=== PATIENT | female | born 1955 | race Caucasian/White ===

== ENCOUNTER 2017-02-15 11:06 | Inpatient (IN) | payer OTHER ==
[~2017-02-15] VITALS: Ht 162.6 cm; Wt 97.0 kg
[~2017-02-15 11:06] MED LIST: ACET500C5 PO; BACTDS PO; CEPH-443 PO
[2017-02-15] MEDS ORDERED: ASPIRIN 81 MG TAB PO STA (11:31)
[2017-02-15] MEDS ORDERED: ONDANSETRON 4 MG INJ IV STA (11:31)
[2017-02-15] MEDS ORDERED: NITROGLYCERIN 2% 1 GM OINT PKT TD STA (11:31)
[2017-02-15] MEDS ORDERED: morphine 4 MG/ML VIAL IV STA (11:31)
[2017-02-15 11:59] LABS: BASOPHILS % 0.4 % (0.0-2.0); EOSINOPHILS # 0.2 10^3/ul (0.0-0.5); LYMPHOCYTES # 2.3 10^3/ul (0.8-2.9); LYMPHOCYTES % 31.8 % (15.0-51.0); MEAN CORPUSCULAR HEMOGLOBIN 30.4 pg (29.0-33.0); MEAN CORPUSCULAR HGB CONC 32.5 g/dl (32.0-37.0); MEAN CORPUSCULAR VOLUME 93.7 fl (82.0-101.0); MEAN PLATELET VOLUME 10.6 fl (7.4-10.4); MONOCYTE # 0.5 10^3/ul (0.3-0.9); MONOCYTES % 6.5 % (0.0-11.0); NEUTROPHIL # 4.3 10^3/ul (1.6-7.5); NEUTROPHILS % 58.8 % (39.0-77.0); PLATELET COUNT 231 10^3/UL (140-415); RED BLOOD COUNT 4.27 10^6/ul (4.20-5.40); RED CELL DISTRIBUTION WIDTH 13.1 % (11.5-14.5); WHITE BLOOD COUNT 7.3 10^3/ul (4.8-10.8)
[2017-02-15] MEDS ORDERED: NITROGLYCERIN (SL) 0.4 MG TAB SL PRN (12:00)
--- NOTE | 2017-02-15 12:00 | RADRPT ---
PROCEDURE: Chest x-ray CLINICAL INDICATION: Chest pain TECHNIQUE: Chest single view COMPARISON: None FINDINGS: There is left chest dual lead pacemaker. Mild cardiomegaly and an sclerotic aortic calcification is seen.. The pulmonary vessels are normal in caliber. The lungs are clear. The costophrenic angles are sharp. The visualized bony thorax is unremarkable. IMPRESSION: No acute cardiopulmonary disease. Mild cardiomegaly and an sclerotic aortic calcification Pacemaker RPTAT: HH .Henry Power MD, Date Time Electronically viewed and signed by .Henry Power MD, on 02/15/2017 12:00 .W/
[2017-02-15 12:13] LABS: ANION GAP 11 (8-16); BLOOD UREA NITROGEN 12 mg/dl (7-20); CALCIUM 9.8 mg/dl (8.4-10.2); CARBON DIOXIDE 28 mmol/L (21-31); CHLORIDE 106 mmol/L (97-110); GLUCOSE 140 mg/dl (70-220); POTASSIUM 4.3 mmol/L (3.5-5.1); SODIUM 141 mmol/L (135-144)
[2017-02-15 12:28] LABS: TROPONIN-I < 0.012 ng/ml (0.00-0.12)
[2017-02-15] MEDS ORDERED: LANT3I SC (12:39)
[2017-02-15] MEDS ORDERED: LEVO125T75 PO (12:40)
[2017-02-15] MEDS ORDERED: GABA300C16 PO (12:41)
[2017-02-15] MEDS ORDERED: OMEP20CA16 PO (12:41)
[2017-02-15] MEDS ORDERED: SIMV20TA PO (12:41)
[2017-02-15] MEDS ORDERED: ASPI-664 PO (12:42)
[2017-02-15] MEDS ORDERED: BENA20TA48 PO (12:42)
[2017-02-15] MEDS ORDERED: METF500T4 PO (12:43)
[2017-02-15] MEDS ORDERED: MTF1000T PO (12:44)
[2017-02-15] MEDS ORDERED: INSU100C SQ (12:45)
[2017-02-15] MEDS ORDERED: ACETAMINOPHEN 325 MG TAB PO PRN (13:00)
[2017-02-15] MEDS ORDERED: ONDANSETRON 4 MG INJ IV PRN ×2 (13:00→14:30)
--- NOTE | 2017-02-15 13:20 | ERD ---
ER Documentation Chief Complaint Chief Complaint Pt with intermittent CP , L axillary lump X 1 week. HPI Patient is a 61-year-old female with hypertension and high cholesterol who presents with chest pain. The patient has midsternal chest pain which started 1 month ago. It radiates to her left arm. She has no fevers. The pain is been constant but worsening over the past day. She has shortness of breath as well. She has had no treatment as of yet. Upon review of old medical records this is the patient's third visit to the ER since 2016. ROS All systems reviewed and are negative except as per history of present illness. Medications Home Meds Reported Medications Insulin Lispro (Humalog) 100 Unit/1 Ml Cartridge, 6 UNIT SQ BID WITH MEALS 02/15/17 Metformin* (Glucophage*) 1,000 Mg Tablet, 1000 MG PO BID, #60 TAB 02/15/17 Aspirin* (Aspirin* EC) 81 Mg Tablet.dr, 81 MG PO DAILY, TAB 02/15/17 Benazepril Hcl* (Benazepril Hcl*) 20 Mg Tablet, 20 MG PO DAILY, #30 TAB 02/15/17 Omeprazole* (Omeprazole*) 20 Mg Capsule.dr, 20 MG PO AC BREAKFAST, #30 CAP 02/15/17 Gabapentin* (Gabapentin*) 300 Mg Capsule, 300 MG PO TID, #90 CAP 02/15/17 Simvastatin* (Zocor*) 20 Mg Tablet, 20 MG PO QHS, #30 TAB 02/15/17 Levothyroxine Sodium* (Levothyroxine Sodium*) 125 Mcg Tablet, 125 MCG PO BEFORE BREAKFAST, #30 TAB 02/15/17 Insulin Glargine* (Lantus*) 100 Unit/Ml Soln, 36 UNIT SC QHS, #1 VIAL 02/15/17 Discontinued Reported Medications Metformin* (Glucophage*) 500 Mg Tab, 500 MG PO BID, #30 TAB 02/15/17 Discontinued Scripts Acetaminophen* (Tylophen*) 500 Mg Capsule, 1 CAP PO Q6H Y for PAIN AND OR ELEVATED TEMP, #50 CAP Prov:STORMY MORENO PA-C 12/29/15 Sulfamethoxazole-Trimethoprim* (Bactrim* DS) 800-160 Mg Tab, 1 TAB PO BID for 7 Days, TAB Prov:STORMY MORENO PA-C 12/29/15 Cephalexin* (Keflex*) 500 Mg Capsule, 500 MG PO QID for 7 Days, CAP Prov:STORMY MORENO PA-C 12/29/15 Allergies Allergies: Coded Allergies: No Known Allergy (Unverified , 01/01/16) PMhx/Soc History of Surgery: Yes (Gallstones) Anesthesia Reaction: No Hx Neurological Disorder: No Hx Respiratory Disorders: No Hx Cardiac Disorders: Yes (HTN) Hx Psychiatric Problems: No Hx Miscellaneous Medical Probl: Yes (DM) Hx Alcohol Use: No Hx Substance Use: No Hx Tobacco Use: No Smoking Status: Never smoker FmHx Family History: coronary disease Physical Exam Vitals Vital Signs Date Time Temp Pulse Resp B/P Pulse Ox O2 Delivery O2 Flow Rate FiO2 02/15/17 11:45 Nasal Cannula 2 02/15/17 11:12 98.0 72 18 204/87 96 Physical Exam Const: Mild distress secondary to chest pain Head: Atraumatic Eyes: Normal Conjunctiva ENT: Normal External Ears, Nose and Mouth. Neck: Full range of motion..~ No meningismus. Resp: Clear to auscultation bilaterally Cardio: Regular rate and rhythm, no murmurs Abd: Soft, non tender, non distended. Normal bowel sounds Skin: No petechiae or rashes Back: No midline or flank tenderness Ext: No cyanosis, or edema Neur: Awake and alert Psych: Normal Mood and Affect Result Diagram: 02/15/17 1145 02/15/17 1145 Results 24 hrs Laboratory Tests Test 02/15/17 11:45 White Blood Count 7.310^3/ul Red Blood Count 4.2710^6/ul Hemoglobin 13.0g/dl Hematocrit 40.0% Mean Corpuscular Volume 93.7fl Mean Corpuscular Hemoglobin 30.4pg Mean Corpuscular Hemoglobin Concent 32.5g/dl Red Cell Distribution Width 13.1% Platelet Count 47636^3/UL Mean Platelet Volume 10.6fl Neutrophils % 58.8% Lymphocytes % 31.8% Monocytes % 6.5% Eosinophils % 2.0% Basophils % 0.4% Nucleated Red Blood Cells % 0.0/100WBC Neutrophils # 4.310^3/ul Lymphocytes # 2.310^3/ul Monocytes # 0.510^3/ul Eosinophils # 0.210^3/ul Basophils # 0.010^3/ul Nucleated Red Blood Cells # 0.010^3/ul Sodium Level 141mmol/L Potassium Level 4.3mmol/L Chloride Level 106mmol/L Carbon Dioxide Level 28mmol/L Anion Gap 11 Blood Urea Nitrogen 12mg/dl Creatinine 0.80mg/dl Glucose Level 140mg/dl Calcium Level 9.8mg/dl Troponin I < 0.012ng/ml Current Medications Medications (Trade) Dose Ordered Sig/Nacho Route PRN Reason Start Time Stop Time Status Last Admin Dose Admin Aspirin (Aspirin) 162 mg ONCE STAT PO 02/15/17 11:31 02/15/17 11:32 DC 02/15/17 11:41 Nitroglycerin (Nitroglycerin 2% Oint) 1 inch ONCE STAT TD 02/15/17 11:31 02/15/17 11:32 DC 02/15/17 11:41 Nitroglycerin (Nitroglycerin (Sl Tab) 0.4 Mg) 1 tab Q5M UP TO 3 DOSES PRN SL CHEST PAIN 02/15/17 12:00 Morphine Sulfate (morphine) 4 mg ONCE STAT IV 02/15/17 11:31 02/15/17 11:32 DC 02/15/17 11:41 Ondansetron HCl (Zofran Inj) 4 mg ONCE STAT IV 02/15/17 11:31 02/15/17 11:32 DC 02/15/17 11:41 Ondansetron HCl (Zofran Inj) 4 mg ER BRIDGE PRN IV NAUSEA AND/OR VOMITING 02/15/17 13:00 02/16/17 12:59 Acetaminophen (Tylenol Tab) 650 mg ER BRIDGE PRN PO MILD PAIN/FEVER 02/15/17 13:00 02/16/17 12:59 Procedures/MDM EKG read by me: Rate/Rhythm: Paced rhythm at a normal rate Intervals: Normal Impression: Paced rhythm with negative Sgarbossa criteria EKG #2 is pending at this time. Chest x-ray shows no pneumonia or pneumothorax per radiology. Patient is a 61-year-old female with multiple cardiac risk factors who presents with chest pain and shortness of breath. She will need admission for a telemetry observation stay to rule out acute coronary syndrome. She was given aspirin, nitroglycerin, and morphine. I spoke with Dr. Taras from the panel team for admission to a telemetry bed. Initial troponin is negative. EKG shows a paced rhythm with negative Sgarbossa criteria. I doubt pneumonia, pneumothorax , pulmonary embolism, or aortic dissection. Departure Diagnosis: Primary Impression: Chest pain Chest pain type: unspecified Qualified Code: R07.9 - Chest pain, unspecified type Condition: DAYNA Rocha MD Feb 15, 2017 13:19
[2017-02-15] MEDS ORDERED: NACL 0.9% 3 ML SYG IV SCH (14:30)
--- NOTE | 2017-02-15 14:40 | HP ---
Date/Time of Note Date/Time of Note DATE: 02/15/17 TIME: 14:39 Assessment/Plan VTE Prophylaxis VTE Prophylaxis Intervention: LMWH Lines/Catheters IV [facility] [place] Assessment/Plan Chief Complaint/Hosp Course 1. Chest pain. -Will rule out ACS. -Serial troponins. 2D echocardiogram. -Cardiology consult. 2. Left mastitis. -Bilateral breast ultrasound. -Antibiotics. 3. Left axillary mass. -Obtain soft tissue ultrasound. 4. Status post permanent pacemaker. -Cardiology evaluation. 5. Essential hypertension. -Resume home antihypertensives. 6. Type 2 diabetes mellitus. -Obtain hemoglobin A1c. -Start sliding scale insulin along with basal insulin and pre-meal insulin. -Resume metformin. 7. Dyslipidemia. -Resume statins. 8. Hypothyroidism. -Resume Synthroid. Plan: The patient will be admitted to inpatient telemetry floor. The patient will be started on a carbohydrate controlled, low-cholesterol diet. The patient will be started on DVT prophylaxis and gastrointestinal prophylaxis. The patient will remain a full code. Activities will be as tolerated. The rest of the patient's management will be based on the clinical course, inputs from consultants, and the results of diagnostic studies. Based on the patient's clinical presentation, she most probably requires at least 2 midnights' stay for further management and evaluation of her clinical presentation. The case and management of this patient was fully discussed with . Problems: HPI/ROS Admit Date/Time Admit Date/Time Hx of Present Illness Reason for admission: Chest pain, left breast pain, bump in the left axilla. Consultants 1. Adolfo Hairston MD, Cardiology. This is a 61-year-old female with past medical history essential hypertension, type 2 diabetes mellitus, hypothyroidism, permanent pacemaker placement, and dyslipidemia who came to the emergency room with chief complaint of chest pain that has been going on and off for the past 2 weeks or so. The patient verbalized the chest pain as pins and needles sensation with radiation to the left, that is not associated with any exertion. The patient also verbalized exertional dyspnea. Patient also verbalized pain in the right thigh region that has been going on for the past 4 days. The patient wass also complaining of her left breast heaviness as well as hardness along with a left armpit "bump." The patient denied any fevers, chills, nausea, vomiting, or diaphoresis. She denied any any recent long drives or flights. In the emergency room, the patient's blood work was within normal limits. The patient's chest x-ray showed mild cardiomegaly with no acute cardiopulmonary disease. The patient was treated with aspirin and transdermal nitroglycerin along with IV analgesics in the emergency room. ROS Constitutional: no complaints Eyes: no complaints ENT: no complaints Respiratory: shortness of breath Cardiovascular: chest pain Gastrointestinal: no complaints Genitourinary: no complaints Musculoskeletal: no complaints Skin: no complaints Neurologic: no complaints Endocrine: no complaints Lymphatic: adenopathy (Left axilla.) Psychological: no complaints Immunologic: no complaints PMH/Family/Social Past Medical History Medical History: diabetes, high cholesterol, hypertension, hypothyroid Past Surgical History Past Surgical Hx: cholecystectomy, other (Permanent pacemaker) Social History The patient lives at home. Alcohol Use: none Smoking Status: Former smoker Drug Use: none Exam/Review of Systems Vital Signs Vitals Vital Signs Date Time Temp Pulse Resp B/P Pulse Ox O2 Delivery O2 Flow Rate FiO2 02/15/17 13:30 98.6 60 16 141/67 100 Nasal Cannula 2.0 Exam Exam General: Adequately build 61 year-old female lying in bed in no apparent distress. HEENT: Normocephalic, atraumatic. Eyes: Anicteric sclerae, conjunctivae clear. ENT: Nasal septum midline, oral mucosa moist. Neck supple, no JVD noticed. Respiratory: Bilaterally clear breath sounds. No use of accessory muscles of respiration. No adventitious breath sounds. Cardiovascular: S1, S2 heard. Regular rate and rhythm. Breasts: Left breast erythema and tenderness. No nipple inversion. Left axillary palpable mass (immobile) Abdomen: Soft, nontender, and nondistended. Bowel sounds positive in all 4 quadrants. Genitourinary: Deferred. Extremities: No cyanosis, no clubbing, no edema. Peripheral pulses palpable. Neurologic: Cranial nerves II through XII grossly intact. The patient is awake, alert, and oriented. Skin: Normal skin turgor. No skin rashes. Labs Result Diagram: 02/15/17 1145 02/15/17 1145 Medications Medications Current Medications Ondansetron HCl (Zofran Inj) 4 mg Q6H PRN IV NAUSEA AND/OR VOMITING; Start 02/15/17 at 14:30 Aspirin (Aspirin) 81 mg DAILY PO ; Start 02/16/17 at 09:00 Acetaminophen (Tylenol Tab) 650 mg Q6H PRN PO PAIN LEVEL 1-3 OR FEVER; Start 02/15/17 at 14:30 Acetaminophen/ Hydrocodone Bitart ([place] (5/325)) 1 tab Q6H PRN PO PAIN LEVEL 4 -6; Start 02/15/17 at 14:30 Enoxaparin Sodium (Lovenox) 40 mg DAILY SC ; Start 02/16/17 at 09:00 Benazepril HCl (Lotensin) 20 mg DAILY PO ; Start 02/16/17 at 09:00 Gabapentin (Neurontin) 300 mg TID PO ; Start 02/15/17 at 21:00 Insulin Glargine (Lantus) 36 unit QHS SC ; Start 02/15/17 at 21:00 Atorvastatin Calcium (Lipitor) 10 mg DAILY@21 PO ; Start 02/15/17 at 21:00 Cephalexin (Keflex) 500 mg Q8 PO ; Start 02/15/17 at 22:00; Status UNMELLISSA BARAJAS NP Feb 15, 2017 14:40
[2017-02-15 15:08] LABS: THYROID STIMULATING HORMONE 3.6 MIU/L (0.465-4.680)
--- NOTE | 2017-02-15 15:34 | RADRPT ---
PROCEDURE: US left axilla CLINICAL INDICATION: Left axilla mass and pain TECHNIQUE: Multiple real-time images were acquired of the left axilla COMPARISON: None available except for chest radiograph 02/15/2017 FINDINGS: 4.3 x 2.7 x 4.4 cm heterogeneous abnormality left axillary abnormality corresponding to the patient' s complaint, but it is not certain if this is complex cystic or heterogeneous solid (suggested by co lisa-flow signal scattered throughout this abnormality). Adjacent 1.3 cm in diameter nodule/lymph node. IMPRESSION: 1. Large left axillary heterogeneous abnormality is indeterminate; this probably is heterogeneous s olid (enlarged lymph node or mass is in the differential diagnosis), but complex cyst is also in the differential diagnosis. 2. Adjacent small nodule/lymph node is indeterminate. Clinical management recommended. A CT scan of this area (the patient has a pacemaker) may be conside red for further analysis. RPTAT: TT Physician Jak Date Time Electronically viewed and signed by Estelle Rubalcava Physician on 02/15/2017 15:34 IRIS/
--- NOTE | 2017-02-15 16:02 | RADRPT ---
Echocardiogram Report Patient Name: MARU LITTLE Gender: Female Date: 1955 Study Date: 15-Feb-2017 Cable Repairer: Meenakshi Tilley RDCS Location: [facility] Ref. Physician: MELLISSA FRANCIS Quality: Adequate Procedures: Transthoracic echocardiogram with complete 2D, M-Mode, and doppler examination. Indications: Chest Pain. 2D/M Mode Doppler Measurement Value Normal Ranges Measurement Value Normal Ranges LVIDd 2D 4.8 3.5 - 5.6 cm AV Peak Ramon 1.3 m/sec LVIDs 2D 2.9 2.1 - 4.1 cm AV Peak PG 7.0 mmHg LVPWd 2D 1.0 0.6 - 1.1 cm LVOT Peak Ramon 0.9 m/sec IVSd 2D 1.2 0.6 - 1.1 cm LVOT Peak PG 3.0 mmHg AoR Diam 2D 2.5 2.0 - 3.7 cm MV E Peak Ramon 0.6 m/sec EDV 2D 108.6 cm3 MV A Peak Ramon 0.9 m/sec ESV 2D 25.3 cm3 MV E/A 0.7 LA Dimen 2D 3.7 2.3 - 4.0 cm MV Decel Time 265 msec MV Decel Rogers 2 MV E/A 0.7 TR Peak Ramon 2.2 m/sec TR Peak PG 19.0 mmHg RVSP 22.0 mmHg Findings Left Ventricle: Lower limits of normal systolic function. Normal left ventricular cavity size. Normal left ventricular wall thickness. Ejection fraction is visually estimated at 50 %. Tissue Doppler/Mitral Doppler indices are consistent with impaired relaxation (Stage I diastolic dysfunction). These segments of the LV are hypokinetic apical septum. Right Ventricle: Normal right ventricular size. Normal right ventricular systolic function. Left Atrium: The left atrium is normal in size. Right Atrium: The right atrium is normal in size. Mitral Valve: Normal appearance and function of the mitral valve with trace physiologic regurgitation. Aortic Valve: No significant aortic stenosis or insufficiency. Aortic cusps appear mildly calcified. Tricuspid Valve: Normal appearance of the tricuspid valve. Estimated peak PA systolic pressure 22 mmHg. There is trace tricuspid regurgitation. Pulmonic Valve: Normal pulmonic valve appearance. Pericardium: Normal pericardium with no significant pericardial effusion. Aorta: Normal aortic root. IVC: Normal size and normal respiratory collapse consistent with normal right atrial pressure. Conclusions 1.Lower limits of normal systolic function. Normal left ventricular cavity size. Normal left ventricular wall thickness. Ejection fraction is visually estimated at 50 %. Tissue Doppler/Mitral Doppler indices are consistent with impaired relaxation (Stage I diastolic dysfunction). These segments of the LV are hypokinetic apical septum. 2.Normal appearance and function of the mitral valve with trace physiologic regurgitation. 3.Normal appearance of the tricuspid valve. Estimated peak PA systolic pressure 22 mmHg. There is trace tricuspid regurgitation. Electronically Signed By: Adolfo Hairston 15-Feb-2017 16:01:37 -0800 Patient Name: MARU LITTLE Study Date: 15-Feb-[id number]
[2017-02-15] MEDS: INSULIN ASPART [NOVOLOG] 3 ML PEN SC SCH ×3 (17:18→22:05)
[2017-02-15] MEDS: metFORMIN 500 MG TAB PO SCH (17:53)
[2017-02-15 18:39] LABS: CREATINE KINASE 85 IU/L (23-200)
[2017-02-15 18:54] LABS: TROPONIN-I < 0.012 ng/ml (0.00-0.12)
[2017-02-15 19:00] VITALS: TEMP 97.3
[2017-02-15 20:00] VITALS: Ht 162.6 cm; Wt 97.0 kg
[2017-02-15 20:05] VITALS: PULSE 65
[2017-02-15 20:19] VITALS: BP 161/77; RESP 20
[2017-02-15] MEDS: INSULIN GLARGINE [LANtus] 3 ML PEN SC SCH (21:00)
[2017-02-15] MEDS ORDERED: INSULIN GLARGINE [LANtus] 3 ML PEN SC ONE (22:30)
[2017-02-15] MEDS: ATORVASTATIN 10 MG TAB PO SCH (22:34)
[2017-02-15] MEDS: CEPHALEXIN 500 MG CAP PO SCH (22:34)
[2017-02-15] MEDS: HYDROCODONE/APAP (5/325) TAB PO PRN (22:34)
[2017-02-15] MEDS: GABAPENTIN 300 MG CAP PO SCH (22:35)
[2017-02-15] MEDS: ACCU-CHEK XX SCH (23:32)
[2017-02-16] VITALS (10 sets, daily range): BP systolic 110–163; BP diastolic 54–74; PULSE 6–72; RESP 16–20
[2017-02-16 00:07] LABS: CREATINE KINASE 90 IU/L (23-200)
[2017-02-16 00:19] LABS: CK-MB 0.94 ng/ml (0.0-2.4)
[2017-02-16 00:27] LABS: TROPONIN-I < 0.012 ng/ml (0.00-0.12)
[2017-02-16] MEDS ORDERED: INSULIN ASPART [NOVOLOG] 3 ML PEN SC SCH (05:00)
[2017-02-16] MEDS: Insulin NOVOLOG SS MILD Algorithm (NPO/TPN/ENTERAL FEEDS) SC SCH ×4 (05:00→19:06)
[2017-02-16] MEDS: CEPHALEXIN 500 MG CAP PO SCH ×2 (05:50→15:07)
[2017-02-16] MEDS: LEVOTHYROXINE 125 MCG TAB PO SCH (05:50)
[2017-02-16] MEDS: INSULIN ASPART [NOVOLOG] 3 ML PEN SC SCH ×4 (07:55→21:00)
[2017-02-16] MEDS: metFORMIN 500 MG TAB PO SCH ×2 (07:55→17:53)
[2017-02-16 08:24] LABS: BASOPHILS % 0.5 % (0.0-2.0); EOSINOPHILS # 0.2 10^3/ul (0.0-0.5); EOSINOPHILS % 3.9 % (0.0-7.0); HEMOGLOBIN 12.7 g/dl (12.0-16.0); LYMPHOCYTES # 1.9 10^3/ul (0.8-2.9); LYMPHOCYTES % 31.6 % (15.0-51.0); MEAN CORPUSCULAR HEMOGLOBIN 29.6 pg (29.0-33.0); MEAN CORPUSCULAR HGB CONC 31.8 g/dl (32.0-37.0); MEAN CORPUSCULAR VOLUME 93.2 fl (82.0-101.0); MEAN PLATELET VOLUME 10.9 fl (7.4-10.4); MONOCYTE # 0.4 10^3/ul (0.3-0.9); MONOCYTES % 6.9 % (0.0-11.0); NEUTROPHIL # 3.4 10^3/ul (1.6-7.5); NEUTROPHILS % 56.8 % (39.0-77.0); PLATELET COUNT 227 10^3/UL (140-415); RED BLOOD COUNT 4.29 10^6/ul (4.20-5.40); RED CELL DISTRIBUTION WIDTH 13.2 % (11.5-14.5); WHITE BLOOD COUNT 5.9 10^3/ul (4.8-10.8)
[2017-02-16 08:42] LABS: ALBUMIN 3.4 g/dl (3.3-4.9); BILIRUBIN,INDIRECT 0.4 mg/dl (0-1.1); BILIRUBIN,TOTAL 0.4 mg/dl (0.2-1.3); CALCIUM 9.4 mg/dl (8.4-10.2); CREATININE 0.8 mg/dl (0.44-1.00); POTASSIUM 4.2 mmol/L (3.5-5.1); TOTAL PROTEIN 6.8 g/dl (6.1-8.1)
[2017-02-16 08:44] LABS: CHOL/HDL RATIO 2.9 RATIO; MAGNESIUM 1.9 mg/dl (1.7-2.5); PHOSPHORUS 4.8 mg/dl (2.5-4.9)
[2017-02-16 08:51] LABS: INR 0.95; PROTIME 12.8 Sec (11.9-14.9)
[2017-02-16 08:52] LABS: PARTIAL THROMBOPLASTIN TIME 26.8 Sec (25.0-35.0)
[2017-02-16] MEDS: GABAPENTIN 300 MG CAP PO SCH ×3 (09:15→21:09)
[2017-02-16] MEDS: BENAZEPRIL 20 MG TAB PO SCH (09:15)
[2017-02-16] MEDS: ASPIRIN 81 MG TAB PO SCH (09:15)
[2017-02-16] MEDS ORDERED: REGADENOSON 0.4 MG/5 ML SYG ONE (11:37)
[2017-02-16] MEDS: ENOXAPARIN 40 MG/0.4 ML SYG SC SCH (12:02)
--- NOTE | 2017-02-16 13:25 | CONS ---
Date/Time of Note Date/Time of Note DATE: 02/16/17 TIME: 13:19 Assessment/Plan Assessment/Plan Chief Complaint/Hosp Course IMP: 1.Chest pain-negative trop x 3/NL EF by echo 2.HTN 3.HL 4.DM 5.Breast swelling-? mastitis 6. Axillary mass Recc: -Tele -serial ecg's -Continue benazepril -continue asa/statin-PRN SL NTG -Continue abx's -Lexiscan stress test today Problems: Consultation Date/Type/Reason Admit Date/Time Feb 15, 2017 at 12:39 Initial Consult Date 02/15/2017 Type of Consultation: cardiology Reason for Consultation chest pain Referring Provider: JAI IRAHETA Exam/Review of Systems Vital Signs Vitals Vital Signs Date Time Temp Pulse Resp B/P Pulse Ox O2 Delivery O2 Flow Rate FiO2 02/16/17 08:34 72 02/16/17 07:46 98.6 18 136/64 97 02/15/17 20:00 Nasal Cannula 2.0 Intake and Output 02/15/17 02/15/17 02/16/17 14:59 22:59 06:59 Intake Total 250 ml Balance 250 ml Exam Review of Systems: CONSTITUTIONAL: No fevers, chills. PULMONARY: No sob CARDIOVASCULAR: mild chest pain GASTROINTESTINAL: No nausea/vomiting. GENITOURINARY: No hematuria/dysuria. MUSCULOSKELETAL: No myagias/arthalgias. PSYCHIATRIC: The patient denies depression. NEUROLOGIC: No weakness Constitutional: alert, oriented Psych: no complaints Head: normocephalic ENMT: mucosa pink and moist Neck: jvd (9 cm water), supple Respiratory: clear to auscultation Cardiovascular: regular rate and rhythm Gastrointestinal: non-tender Musculoskeletal: muscle tone (normal) Extremities: edema (none) Neurological: other (No focal deficits) Results Result Diagram: 02/16/17 0715 02/16/17 0715 Results 24 hrs Laboratory Tests Test 02/15/17 17:10 02/15/17 18:15 02/15/17 18:32 02/15/17 21:04 Bedside Glucose 67 L 125 138 Creatine Kinase 85 Creatine Kinase Index 1.2 Creatinine Kinase MB (Mass) 1.00 Troponin I < 0.012 Test 02/15/17 23:24 02/16/17 05:52 02/16/17 07:15 02/16/17 09:14 Creatine Kinase 90 Creatine Kinase Index 1.0 Creatinine Kinase MB (Mass) 0.94 Troponin I < 0.012 Bedside Glucose 95 87 White Blood Count 5.9 Red Blood Count 4.29 Hemoglobin 12.7 Hematocrit 40.0 Mean Corpuscular Volume 93.2 Mean Corpuscular Hemoglobin 29.6 Mean Corpuscular Hemoglobin Concent 31.8 L Red Cell Distribution Width 13.2 Platelet Count 227 Mean Platelet Volume 10.9 H Neutrophils % 56.8 Lymphocytes % 31.6 Monocytes % 6.9 Eosinophils % 3.9 Basophils % 0.5 Nucleated Red Blood Cells % 0.0 Neutrophils # 3.4 Lymphocytes # 1.9 Monocytes # 0.4 Eosinophils # 0.2 Basophils # 0.0 Nucleated Red Blood Cells # 0.0 Prothrombin Time 12.8 Prothrombin Time Ratio 1.0 INR International Normalized Ratio 0.95 Activated Partial Thromboplast Time 26.8 Sodium Level 144 Potassium Level 4.2 Chloride Level 106 Carbon Dioxide Level 29 Anion Gap 13 Blood Urea Nitrogen 11 Creatinine 0.80 Glucose Level 104 Calcium Level 9.4 Phosphorus Level 4.8 Magnesium Level 1.9 Total Bilirubin 0.4 Direct Bilirubin 0.00 Indirect Bilirubin 0.4 Aspartate Amino Transf (AST/SGOT) 22 Alanine Aminotransferase (ALT/SGPT) 29 Alkaline Phosphatase 77 Total Protein 6.8 Albumin 3.4 Globulin 3.40 H Albumin/Globulin Ratio 1.00 Triglycerides Level 122 Cholesterol Level 129 LDL Cholesterol, Calculated 61 HDL Cholesterol 44 Cholesterol/HDL Ratio 2.9 Medications Medications Current Medications Ondansetron HCl (Zofran Inj) 4 mg Q6H PRN IV NAUSEA AND/OR VOMITING; Start 02/15/17 at 14:30 Aspirin (Aspirin) 81 mg DAILY PO Last administered on 02/16/17 09:15; Admin Dose 81 MG; Start 02/16/17 at 09:00 Acetaminophen (Tylenol Tab) 650 mg Q6H PRN PO PAIN LEVEL 1-3 OR FEVER; Start 02/15/17 at 14:30 Acetaminophen/ Hydrocodone Bitart ([place] (5/325)) 1 tab Q6H PRN PO PAIN LEVEL 4 -6 Last administered on 02/15/17 22:34; Admin Dose 1 TAB; Start 02/15/17 at 14: 30 Enoxaparin Sodium (Lovenox) 40 mg DAILY SC Last administered on 02/16/17 12:02 ; Admin Dose 40 MG; Start 02/16/17 at 09:00 Benazepril HCl (Lotensin) 20 mg DAILY PO Last administered on 02/16/17 09:15; Admin Dose 20 MG; Start 02/16/17 at 09:00 Gabapentin (Neurontin) 300 mg TID PO Last administered on 02/16/17 09:15; Admin Dose 300 MG; Start 02/15/17 at 21:00 Insulin Glargine (Lantus) 36 unit QHS SC ; Start 02/15/17 at 21:00 Atorvastatin Calcium (Lipitor) 10 mg DAILY@21 PO Last administered on 22:34; Admin Dose 10 MG; Start 02/15/17 at 21:00 Cephalexin (Keflex) 500 mg Q8 PO Last administered on 02/16/17 05:50; Admin Dose 500 MG; Start 02/15/17 at 22:00 Diagnostic Test (Pha) (Accu-Chek) 1 ea 02 XX ; Start 02/16/17 at 02:00 Insulin Aspart (Novolog Insulin Pen) (Adult SC Insulin - Mild Algorithm)... Q4 SC ; Start 02/16/17 at 05:00 DORA LANIER Feb 16, 2017 13:25
[2017-02-16] MEDS ORDERED: GLUCOSE GEL 15 GRAM TUBE BUCCAL PRN (14:00)
[2017-02-16] MEDS ORDERED: DEXTROSE 50% 50 ML SYRINGE IV PRN ×2 (14:00)
[2017-02-16] MEDS ORDERED: GLUCAGON 1 MG INJ IM PRN (14:00)
[2017-02-16] MEDS ORDERED: GLUCOSE GEL 15 GRAM TUBE PO PRN ×2 (14:00)
--- NOTE | 2017-02-16 14:09 | CONS ---
DATE OF ADMISSION: 02/15/2017 DATE OF CONSULTATION: 02/15/2017 CARDIOLOGY CONSULTATION REASON FOR CONSULTATION: Chest pain, assess for acute coronary syndrome. REQUESTING PHYSICIAN: Gregory Best from the hospitalist service. HISTORY OF PRESENT ILLNESS: Ms. Saldana is a 61-year-old female with a history of permanent pacemaker implantation, hypertension, diabetes mellitus, dyslipidemia, hypothyroidism who presents with approximately 2 weeks of substernal chest pain described as a pressure-like sensation, worse with ambulation and associated left breast swelling and possible mass in the axilla. The patient describes chest pain as a pressure-like sensation with radiation down her arm. Initially upon arrival in the emergency department temperature 98 , blood pressure markedly elevated at 204/87, pulse 72, respirations 18, saturating 96%. The patient's labs: White blood count 7.3, hemoglobin 13.0, platelet count 231. Sodium of 141, potassium 4.3, creatinine of 0.8, BUN 12. Troponin negative. BNP 160, TSH 3.6, free T4 of 1.1. The patient underwent a soft tissue ultrasound revealing a large left axillary heterogenous abnormality , possible large lymph node. A chest x-ray that revealed no acute cardiopulmonary disease, mild cardiomegaly. Patient's electrocardiogram revealed sinus rhythm, first-degree AV block with questionable ventricular paced beats. The patient at this time awaits admit to the floor. PAST MEDICAL HISTORY: As above in HPI. MEDICATIONS CURRENTLY IN HOSPITAL: 1. Aspirin 81 mg daily. 2. Lovenox SQ daily. 3. Benazepril daily. 4. Synthroid daily. 5. Keflex 500 mg q. 8. 6. Neurontin 300 mg t.i.d. 7. Lantus. 8. Lipitor. 9. Metformin. 10. Insulin sliding scale. ALLERGIES: NO KNOWN DRUG ALLERGIES. SOCIAL HISTORY: No tobacco, ETOH or illicit drug use. FAMILY HISTORY: No history of sudden cardiac or early CAD. REVIEW OF SYSTEMS: As above in HPI. CONSTITUTIONAL: No fevers or chills. PULMONARY: No current shortness of breath. CARDIOVASCULAR: Positive chest pain. GASTROINTESTINAL: No vomiting. GENITOURINARY: No hematuria. MUSCULOSKELETAL: No significant myalgia, arthralgia. ENDOCRINE: Diabetes mellitus. PSYCHIATRIC: No documented psych history. PHYSICAL EXAMINATION: VITAL SIGNS: Temperature of 98.6, blood pressure 124/58, pulse 60, respirations 16, saturating 92% on 2 liters. GENERAL: The patient is alert, awake, complaining of substernal chest pain and axillary pain. NECK: JVP approximately 8 cm water. CHEST: Fair air movement throughout. Left breast swelling, axillary mass. HEART: Regular rate and rhythm. Normal S1, S2. I/ systolic murmur, nondisplaced PMI. ABDOMEN: Positive bowel sounds, soft. EXTREMITIES: No edema. LABORATORY DATA: As above in HPI. No further labs for my review at this time. IMAGING STUDIES: As above in HPI. No further imaging studies for my review at this time. IMPRESSION: 1. Chest pain, assess for acute coronary syndrome. Patient has multiple cardiac risk factors at this time and exertional chest pain. 2. Abnormal electrocardiogram, assess for acute coronary syndrome. 3. History of permanent pacemaker. No signs of dysfunction at this time. 4. Mildly increased BNP, assess for congestive heart failure. 5. Left breast swelling, question mastitis or alternative etiology. 6. Possible axillary mass versus enlarged lymph node by ultrasound. 7. Diabetes mellitus. 8. Hypothyroidism. 9. Hypertension. 10. Dyslipidemia. RECOMMENDATIONS: 1. At this time, would admit the patient to telemetry monitoring to follow rhythm and rate control closely. 2. Would complete the patient's rule out for myocardial infarction to ensure shows patient's chest pain is not due to acute coronary syndrome, acute myocardial infarction. 3. Continue the patient's current aspirin for prophylaxis against cardiovascular events. 4. Continue the patient's current benazepril for control of blood pressure and will give the patient sublingual nitroglycerin for recurrent episodes of chest pain. 5. Continue the patient's insulin and follow blood sugars closely. 6. Continue the patient's Synthroid and adjust it according to the TSH to be checked. 7. Continue the patient's Keflex at this time and follow the patient's breast swelling closely. 8. Check a 2D echo to further assess patient's ejection fraction, wall motion and major abnormalities and will consider Lexiscan stress test in this patient if she rules out to further assess for the possibility of significant obstructive coronary artery disease lending to symptoms of chest pain and subsequent admit to the hospital. Thank you for allowing me to take part in the care of this patient. I will continue to follow along very closely with you with further recommendations to be made as the patient progresses through her inpatient hospital clinical course. Dictated By: DORA MERINO/DAMARI Conf#: [id number] DID#: [id number] MTDD
[2017-02-16] MEDS: ACETAMINOPHEN 325 MG TAB PO PRN (15:07)
--- NOTE | 2017-02-16 15:08 | PN ---
Date/Time of Note Date/Time of Note DATE: 02/16/17 TIME: 15:02 Assessment/Plan VTE Prophylaxis VTE Prophylaxis Intervention: LMWH Lines/Catheters IV C[facility]ter Type (from [facility] Saline Lock Assessment/Plan Chief Complaint/Hosp Course 1. Chest pain. -To rule out ACS. -Serial troponins negative. -2D echocardiogram showing ejection fraction of 50%. -Status post cardiac stress test. Pending results. 2. Left mastitis (improved). -Bilateral breast ultrasound pending. -Antibiotics. 3. Left axillary mass. -Soft tissue ultrasound inconclusive. Probably left axillary lymph node enlargement from underlying mastitis. 4. Status post permanent pacemaker. -Cardiology evaluation. 5. Essential hypertension. -Continue home antihypertensives. 6. Type 2 diabetes mellitus. -Hemoglobin A1c 6.7. -Continue sliding scale insulin along with basal insulin and pre-meal insulin. -Continue metformin. 7. Dyslipidemia. -Continue statins. 8. Hypothyroidism. -Continue Synthroid. 9. Fluids, electrolytes, and nutrition. -Carbohydrate controlled, low-cholesterol diet. 10. DVT prophylaxis. -Subcutaneous Lovenox. 11. Plan. -Await stress test results. -ID evaluation for antibiotic therapy for left breast erythema. Case discussed with Dr. Valiente. Problems: Subjective 24 Hr Interval Summary Free Text/Dictation Patient remains afebrile. Continues to have left axillary pain. Continues to have some chest discomfort. Exam/Review of Systems Vital Signs Vitals Vital Signs Date Time Temp Pulse Resp B/P Pulse Ox O2 Delivery O2 Flow Rate FiO2 02/16/17 08:34 72 02/16/17 07:46 98.6 18 136/64 97 02/15/17 20:00 Nasal Cannula 2.0 Intake and Output 02/15/17 02/15/17 02/16/17 15:00 23:00 07:00 Intake Total 250 ml Balance 250 ml Exam General: Adequately build 61 year-old female lying in bed in no apparent distress. HEENT: Normocephalic, atraumatic. Eyes: Anicteric sclerae, conjunctivae clear. ENT: Nasal septum midline, oral mucosa moist. Neck supple, no JVD noticed. Respiratory: Bilaterally clear breath sounds. No use of accessory muscles of respiration. No adventitious breath sounds. Cardiovascular: S1, S2 heard. Regular rate and rhythm. Breasts: No left breast erythema or tenderness. No nipple inversion. Left axillary palpable nodule (immobile). Abdomen: Soft, nontender, and nondistended. Bowel sounds positive in all 4 quadrants. Genitourinary: Deferred. Extremities: No cyanosis, no clubbing, no edema. Peripheral pulses palpable. Neurologic: Cranial nerves II through XII grossly intact. The patient is awake, alert, and oriented. Skin: Normal skin turgor. No skin rashes. Results Result Diagram: 02/16/17 0715 02/16/17 0715 Results 24 hrs Laboratory Tests Test 02/15/17 17:10 02/15/17 18:15 02/15/17 18:32 02/15/17 21:04 Bedside Glucose 67 L 125 138 Creatine Kinase 85 Creatine Kinase Index 1.2 Creatinine Kinase MB (Mass) 1.00 Troponin I < 0.012 Test 02/15/17 23:24 02/16/17 05:52 02/16/17 07:15 02/16/17 09:14 Creatine Kinase 90 Creatine Kinase Index 1.0 Creatinine Kinase MB (Mass) 0.94 Troponin I < 0.012 Bedside Glucose 95 87 White Blood Count 5.9 Red Blood Count 4.29 Hemoglobin 12.7 Hematocrit 40.0 Mean Corpuscular Volume 93.2 Mean Corpuscular Hemoglobin 29.6 Mean Corpuscular Hemoglobin Concent 31.8 L Red Cell Distribution Width 13.2 Platelet Count 227 Mean Platelet Volume 10.9 H Neutrophils % 56.8 Lymphocytes % 31.6 Monocytes % 6.9 Eosinophils % 3.9 Basophils % 0.5 Nucleated Red Blood Cells % 0.0 Neutrophils # 3.4 Lymphocytes # 1.9 Monocytes # 0.4 Eosinophils # 0.2 Basophils # 0.0 Nucleated Red Blood Cells # 0.0 Prothrombin Time 12.8 Prothrombin Time Ratio 1.0 INR International Normalized Ratio 0.95 Activated Partial Thromboplast Time 26.8 Sodium Level 144 Potassium Level 4.2 Chloride Level 106 Carbon Dioxide Level 29 Anion Gap 13 Blood Urea Nitrogen 11 Creatinine 0.80 Glucose Level 104 Calcium Level 9.4 Phosphorus Level 4.8 Magnesium Level 1.9 Total Bilirubin 0.4 Direct Bilirubin 0.00 Indirect Bilirubin 0.4 Aspartate Amino Transf (AST/SGOT) 22 Alanine Aminotransferase (ALT/SGPT) 29 Alkaline Phosphatase 77 Total Protein 6.8 Albumin 3.4 Globulin 3.40 H Albumin/Globulin Ratio 1.00 Triglycerides Level 122 Cholesterol Level 129 LDL Cholesterol, Calculated 61 HDL Cholesterol 44 Cholesterol/HDL Ratio 2.9 Test 02/16/17 14:24 Bedside Glucose 132 Medications Medications Current Medications Ondansetron HCl (Zofran Inj) 4 mg Q6H PRN IV NAUSEA AND/OR VOMITING; Start 02/15/17 at 14:30 Aspirin (Aspirin) 81 mg DAILY PO Last administered on 02/16/17 09:15; Admin Dose 81 MG; Start 02/16/17 at 09:00 Acetaminophen (Tylenol Tab) 650 mg Q6H PRN PO PAIN LEVEL 1-3 OR FEVER; Start 02/15/17 at 14:30 Acetaminophen/ Hydrocodone Bitart ([place] (5/325)) 1 tab Q6H PRN PO PAIN LEVEL 4 -6 Last administered on 02/15/17 22:34; Admin Dose 1 TAB; Start 02/15/17 at 14: 30 Enoxaparin Sodium (Lovenox) 40 mg DAILY SC Last administered on 02/16/17 12:02 ; Admin Dose 40 MG; Start 02/16/17 at 09:00 Benazepril HCl (Lotensin) 20 mg DAILY PO Last administered on 02/16/17 09:15; Admin Dose 20 MG; Start 02/16/17 at 09:00 Gabapentin (Neurontin) 300 mg TID PO Last administered on 02/16/17 09:15; Admin Dose 300 MG; Start 02/15/17 at 21:00 Insulin Glargine (Lantus) 36 unit QHS SC ; Start 02/15/17 at 21:00 Atorvastatin Calcium (Lipitor) 10 mg DAILY@21 PO Last administered on 22:34; Admin Dose 10 MG; Start 02/15/17 at 21:00 Cephalexin (Keflex) 500 mg Q8 PO Last administered on 02/16/17 05:50; Admin Dose 500 MG; Start 02/15/17 at 22:00 Diagnostic Test (Pha) (Accu-Chek) 1 ea 02 XX ; Start 02/16/17 at 02:00 Insulin Aspart (Novolog Insulin Pen) (Adult SC Insulin - Mild Algorithm)... Q4 SC ; Start 02/16/17 at 05:00 Miscellaneous Information 1 ea NOTE XX ; Start 02/16/17 at 14:00 Glucose (Glutose) 15 gm Q15M PRN PO DECREASED GLUCOSE; Start 02/16/17 at 14:00 Glucose (Glutose) 22.5 gm Q15M PRN PO DECREASED GLUCOSE; Start 02/16/17 at 14: 00 Dextrose (D50w Syringe) 25 ml Q15M PRN IV DECREASED GLUCOSE; Start 02/16/17 at 14:00 Dextrose (D50w Syringe) 50 ml Q15M PRN IV DECREASED GLUCOSE; Start 02/16/17 at 14:00 Glucagon (Glucagen) 1 mg Q15M PRN IM DECREASED GLUCOSE; Start 02/16/17 at 14:00 Glucose (Glutose) 15 gm Q15M PRN BUCCAL DECREASED GLUCOSE; Start 02/16/17 at 14 :00 MELLISSA FRANCIS NP Feb 16, 2017 15:08
--- NOTE | 2017-02-16 16:05 | RADRPT ---
PROCEDURE: Lexiscan myocardial perfusion study CLINICAL INDICATION: 61 -year-old patient complaining of chest pain. TECHNIQUE: Lexiscan 0.4 mg intravenously separate acquisition gated myocardial perfusion SPECT usi ng Tc 99m Myoview 30.0 mCi intravenously at stress and Tc-99m Myoview, 11.1 mCi intravenously at res t was performed using the rest/stress sequence. Poststress Myoview SPECT images were obtained in th e supine position. COMPARISON: No prior studies. FINDINGS: Perfusion images reveal mild nonreversible perfusion abnormality in the inferoapical, inferior and i nferolateral mcintyre. Lexiscan post stress gated SPECT images demonstrate no wall motion abnormalities. IMPRESSION: 1. No evidence of stress-induced ischemia. 2. No wall motion abnormalities. 3. The left ventricle ejection fraction at stress is 58%. RPTAT: QQ .Arabella Baugh MD, Date Time Electronically viewed and signed by .Arabella Baugh MD, on 02/16/2017 16:05 .L/
[2017-02-16] MEDS ORDERED: VANCOMYCIN IV PER PHARMACY XX SCH (16:30)
--- NOTE | 2017-02-16 16:48 | RADRPT ---
PROCEDURE: US Lower extremity Venous. CLINICAL INDICATION: Bilateral leg swelling TECHNIQUE: Multiple sonographic images of the bilateral lower extremity deep venous system was obt ained utilizing logan scale, color-flow, compressive sonography and doppler imaging with augmentation . COMPARISON: None. FINDINGS: There is normal compressibility, phasicity and Doppler flow within the bilateral common femoral, fem oral and popliteal veins. Visualized portions of the calf veins are patent. IMPRESSION: No sonographic evidence for deep venous thrombosis. RPTAT:AAJJ Physician [place] Date Time Electronically viewed and signed by Rommel Santos Physician on 02/16/2017 16:47 /
[2017-02-16] MEDS ORDERED: VANCOMYCIN 2 GM in SOD CHLORIDE 0.9% 500 ML IVPB ONE (18:00)
--- NOTE | 2017-02-16 18:45 | CONS ---
DATE OF ADMISSION: 02/15/2017 DATE OF CONSULTATION: 02/16/2017 TYPE OF CONSULTATION: Infectious Disease. REASON FOR CONSULTATION: Antibiotic management. HISTORY OF PRESENT ILLNESS: Kathleen Saldana is a 61-year-old female who was admitted with chest p ain, left breast lump, and is being seen for antibiotic management. Her past problems include: 1. Essential hypertension. 2. Adult-onset diabetes mellitus. 3. Hypothyroidism. 4. Permanent pacemaker placement. 5. Dyslipidemia. 6. Status post cholecystectomy. 7. Permanent pacemaker placement. 8. History of smoking in the past. Acutely, the patient comes to the emergency room with chest pain intermittently for the last 2 weeks . This was described as being pins and needles with radiation to the left, not associated with exer tion. She had some pain in the left parietal region that had been going on for the last few days. She also complains of left breast heaviness, as well as hardness of the left arm pit, which she desc ribed as a bump. She denied fever or chills. Chest x-ray showed cardiomegaly, but no acute infiltr ates. The patient received aspirin and transdermal nitroglycerin. On admission, her white count wa s 7.3, H and H of 13 and 40, platelet count of 231,000. BUN and creatinine 12/0.8. PAST MEDICAL HISTORY: Operations as outlined. FAMILY HISTORY: Noncontributory. SOCIAL HISTORY: She is a former smoker. She does not drink or abuse drugs. ALLERGIES: NONE TO PENICILLIN, SULFA OR FOODS. MEDICATIONS: Per chart. REVIEW OF SYSTEMS: As per HPI. PHYSICAL EXAMINATION: GENERAL: The patient is a well-developed, well-nourished female who is alert, responsive, in no acu te distress. VITAL SIGNS: Stable. She is afebrile. SKIN: Without generalized rash. HEENT: Within normal limits. NECK: Supple. LYMPH NODES: None palpable. CHEST: Decreased breath sounds at the bases. HEART: Without murmur or gallop. ABDOMEN: Soft, nontender, without organosplenomegaly or masses. BREASTS: She has some left breast erythema and tenderness. The left axilla has a palpable mass. EXTREMITIES: No cyanosis, clubbing, or edema. RECTAL AND GENITAL: Deferred. NEUROLOGIC: No focal neurological abnormality. A soft tissue ultrasound showed large left axillary heterogeneous abnormality. She has an enlarged lymph node or a mass. A complex cyst is also on the differential. A CT scan of the area should be considered. A Lexiscan myocardial perfusion study was done which did not show any evidence of abnor mality and the ejection fraction is 58%. IMPRESSION AND PLAN: The patient was felt to have a left mastitis. She was started on a trial of a ntibiotics and so far is improving. The patient is currently on just Keflex. Her white count today is 5.9. BUN and creatinine are 11/0.8. In view of the fact that are considering left breast masti tis, I would probably place her on either Zosyn or possibly vancomycin. Clindamycin is also a possi bility. I will dictate my findings to the hospitalist. Dictated By: RYLAND ARCHER MD, JD/DAMARI Conf#: [id number] DID#: [id number] CC: JAI IRAHETA MD;*End*
[2017-02-16] MEDS: ATORVASTATIN 10 MG TAB PO SCH (21:10)
[2017-02-16] MEDS: INSULIN GLARGINE [LANtus] 3 ML PEN SC SCH (21:34)
[2017-02-17] VITALS (9 sets, daily range): BP systolic 125–185; BP diastolic 59–76; PULSE 60–64; RESP 20
[2017-02-17] MEDS ORDERED: ACCU-CHEK XX SCH (02:00)
[2017-02-17] MEDS: ACCU-CHEK XX SCH (02:00)
[2017-02-17] MEDS: LEVOTHYROXINE 125 MCG TAB PO SCH (05:43)
[2017-02-17] MEDS: VANCOMYCIN 1 GM in NS 250 ML IVPB SCH ×2 (05:45→17:47)
[2017-02-17 06:05] LABS: BASOPHILS % 0.5 % (0.0-2.0); EOSINOPHILS # 0.2 10^3/ul (0.0-0.5); EOSINOPHILS % 3.2 % (0.0-7.0); HEMATOCRIT 40.8 % (37.0-47.0); HEMOGLOBIN 13.2 g/dl (12.0-16.0); LYMPHOCYTES # 1.8 10^3/ul (0.8-2.9); LYMPHOCYTES % 28.8 % (15.0-51.0); MEAN CORPUSCULAR HEMOGLOBIN 30.2 pg (29.0-33.0); MEAN CORPUSCULAR HGB CONC 32.4 g/dl (32.0-37.0); MEAN CORPUSCULAR VOLUME 93.4 fl (82.0-101.0); MEAN PLATELET VOLUME 10.8 fl (7.4-10.4); MONOCYTE # 0.5 10^3/ul (0.3-0.9); MONOCYTES % 7.3 % (0.0-11.0); NEUTROPHIL # 3.7 10^3/ul (1.6-7.5); NEUTROPHILS % 59.9 % (39.0-77.0); PLATELET COUNT 228 10^3/UL (140-415); RED BLOOD COUNT 4.37 10^6/ul (4.20-5.40); RED CELL DISTRIBUTION WIDTH 13.2 % (11.5-14.5); WHITE BLOOD COUNT 6.2 10^3/ul (4.8-10.8)
[2017-02-17 06:36] LABS: CALCIUM 9.1 mg/dl (8.4-10.2); CREATININE 0.77 mg/dl (0.44-1.00); POTASSIUM 4.3 mmol/L (3.5-5.1)
[2017-02-17 06:58] LABS: MAGNESIUM 1.9 mg/dl (1.7-2.5); PHOSPHORUS 4.1 mg/dl (2.5-4.9)
[2017-02-17] MEDS: INSULIN ASPART [NOVOLOG] 3 ML PEN SC SCH ×7 (07:55→21:00)
[2017-02-17] MEDS: ASPIRIN 81 MG TAB PO SCH (08:29)
[2017-02-17] MEDS: metFORMIN 500 MG TAB PO SCH ×2 (08:30→17:44)
[2017-02-17] MEDS: GABAPENTIN 300 MG CAP PO SCH ×3 (08:30→21:54)
[2017-02-17] MEDS: ENOXAPARIN 40 MG/0.4 ML SYG SC SCH (08:32)
[2017-02-17] MEDS: BENAZEPRIL 20 MG TAB PO SCH (08:36)
--- NOTE | 2017-02-17 09:43 | PN ---
Date/Time of Note Date/Time of Note DATE: 02/17/17 TIME: 09:40 Assessment/Plan VTE Prophylaxis VTE Prophylaxis Intervention: LMWH Lines/Catheters [facility]from [facility] Saline Lock Assessment/Plan Chief Complaint/Hosp Course 1. Chest pain. -ACS ruled out. -Serial troponins negative. -2D echocardiogram showing ejection fraction of 50%. -Status post negative cardiac stress test. 2. Left mastitis (improved). -Bilateral breast ultrasound pending. -Antibiotics as per ID. 3. Left axillary mass. -Soft tissue ultrasound inconclusive. Probably left axillary lymph node enlargement from underlying mastitis. Surgical consult. 4. Status post permanent pacemaker. -Cardiology evaluation. 5. Essential hypertension. -Continue home antihypertensives. 6. Type 2 diabetes mellitus. -Hemoglobin A1c 6.7. -Continue sliding scale insulin along with basal insulin and pre-meal insulin. -Continue metformin. 7. Dyslipidemia. -Continue statins. 8. Hypothyroidism. -Continue Synthroid. 9. Fluids, electrolytes, and nutrition. -Carbohydrate controlled, low-cholesterol diet. 10. DVT prophylaxis. -Subcutaneous Lovenox. 11. Plan. -Await bilateral breast ultrasound results. -.Obtain surgical consult. Case discussed with Dr. Valiente. Problems: Subjective 24 Hr Interval Summary Free Text/Dictation Denies any chest pain. Denies any left breast tenderness. Continues to have left armpit pain. Exam/Review of Systems Vital Signs Vitals Vital Signs Date Time Temp Pulse Resp B/P Pulse Ox O2 Delivery O2 Flow Rate FiO2 02/17/17 08:29 60 02/17/17 07:56 98.4 20 125/59 95 02/15/17 20:00 Nasal Cannula 2.0 Intake and Output 02/16/17 02/16/17 02/17/17 15:00 23:00 07:00 Intake Total 850 ml 800 ml Balance 850 ml 800 ml Exam General: Adequately build 61 year-old female lying in bed in no apparent distress. HEENT: Normocephalic, atraumatic. Eyes: Anicteric sclerae, conjunctivae clear. ENT: Nasal septum midline, oral mucosa moist. Neck supple, no JVD noticed. Respiratory: Bilaterally clear breath sounds. No use of accessory muscles of respiration. No adventitious breath sounds. Cardiovascular: S1, S2 heard. Regular rate and rhythm. Breasts: No left breast erythema or tenderness. No nipple inversion. Left axillary lymphadenopathy. Abdomen: Soft, nontender, and nondistended. Bowel sounds positive in all 4 quadrants. Genitourinary: Deferred. Extremities: No cyanosis, no clubbing, no edema. Peripheral pulses palpable. Neurologic: Cranial nerves II through XII grossly intact. The patient is awake, alert, and oriented. Skin: Normal skin turgor. No skin rashes. Results Result Diagram: 02/17/17 0539 02/17/17 0539 Results 24 hrs Laboratory Tests Test 02/16/17 14:24 02/16/17 17:59 02/16/17 21:08 02/17/17 05:39 Bedside Glucose 132 157 109 White Blood Count 6.2 Red Blood Count 4.37 Hemoglobin 13.2 Hematocrit 40.8 Mean Corpuscular Volume 93.4 Mean Corpuscular Hemoglobin 30.2 Mean Corpuscular Hemoglobin Concent 32.4 Red Cell Distribution Width 13.2 Platelet Count 228 Mean Platelet Volume 10.8 H Neutrophils % 59.9 Lymphocytes % 28.8 Monocytes % 7.3 Eosinophils % 3.2 Basophils % 0.5 Nucleated Red Blood Cells % 0.0 Neutrophils # 3.7 Lymphocytes # 1.8 Monocytes # 0.5 Eosinophils # 0.2 Basophils # 0.0 Nucleated Red Blood Cells # 0.0 Sodium Level 143 Potassium Level 4.3 Chloride Level 107 Carbon Dioxide Level 29 Anion Gap 11 Blood Urea Nitrogen 12 Creatinine 0.77 Glucose Level 139 Calcium Level 9.1 Phosphorus Level 4.1 Magnesium Level 1.9 Test 02/17/17 08:29 Bedside Glucose 113 Medications Medications Current Medications Ondansetron HCl (Zofran Inj) 4 mg Q6H PRN IV NAUSEA AND/OR VOMITING; Start 02/15/17 at 14:30 Aspirin (Aspirin) 81 mg DAILY PO Last administered on 02/17/17 08:29; Admin Dose 81 MG; Start 02/16/17 at 09:00 Acetaminophen (Tylenol Tab) 650 mg Q6H PRN PO PAIN LEVEL 1-3 OR FEVER Last administered on 02/16/17 15:07; Admin Dose 650 MG; Start 02/15/17 at 14:30 Acetaminophen/ Hydrocodone Bitart ([place] (5/325)) 1 tab Q6H PRN PO PAIN LEVEL 4 -6 Last administered on 12/1/17at 22:34; Admin Dose 1 TAB; Start 02/15/17 at 14: 30 Enoxaparin Sodium (Lovenox) 40 mg DAILY SC Last administered on 02/17/17 08:32 ; Admin Dose 40 MG; Start 02/16/17 at 09:00 Benazepril HCl (Lotensin) 20 mg DAILY PO Last administered on 02/17/17 08:36; Admin Dose 20 MG; Start 02/16/17 at 09:00 Gabapentin (Neurontin) 300 mg TID PO Last administered on 02/17/17 08:30; Admin Dose 300 MG; Start 02/15/17 at 21:00 Insulin Glargine (Lantus) 36 unit QHS SC Last administered on 02/16/17 21:34; Admin Dose 36 UNIT; Start 02/15/17 at 21:00 Atorvastatin Calcium (Lipitor) 10 mg DAILY@21 PO Last administered on 21:10; Admin Dose 10 MG; Start 02/15/17 at 21:00 Diagnostic Test (Pha) (Accu-Chek) 1 ea 02 XX ; Start 02/16/17 at 02:00 Miscellaneous Information 1 ea NOTE XX ; Start 02/16/17 at 14:00 Glucose (Glutose) 15 gm Q15M PRN PO DECREASED GLUCOSE; Start 02/16/17 at 14:00 Glucose (Glutose) 22.5 gm Q15M PRN PO DECREASED GLUCOSE; Start 02/16/17 at 14: 00 Dextrose (D50w Syringe) 25 ml Q15M PRN IV DECREASED GLUCOSE; Start 02/16/17 at 14:00 Dextrose (D50w Syringe) 50 ml Q15M PRN IV DECREASED GLUCOSE; Start 02/16/17 at 14:00 Glucagon (Glucagen) 1 mg Q15M PRN IM DECREASED GLUCOSE; Start 02/16/17 at 14:00 Glucose 15 gm 15 gm Q15M PRN BUCCAL DECREASED GLUCOSE; Start 02/16/17 at 14:00 Vancomycin HCl (Vancocin) 250 ml @ 125 mls/hr Q12H IVPB Last administered on 02/17/17 05:45; Admin Dose 125 MLS/HR; Start 02/17/17 at 06:00 MELLISSA FRANCIS NP Feb 17, 2017 09:43
[2017-02-17] MEDS: HYDROCODONE/APAP (5/325) TAB PO PRN (13:02)
[2017-02-17] MEDS: ACETAMINOPHEN 325 MG TAB PO PRN (14:28)
--- NOTE | 2017-02-17 14:33 | CONS ---
Date/Time of Note Date/Time of Note DATE: 02/17/17 TIME: 14:30 Assessment/Plan Assessment/Plan Chief Complaint/Hosp Course IMP: 1.Chest pain-negative trop x 3/NL EF by echo. Lexiscan with NL EF and no ischemia. Likley due to breast infection 2.HTN 3.HL 4.DM 5.Breast swelling-? mastitis. improving on abx therapy 6. Axillary mass Recc: -Tele -serial ecg's -Continue benazepril -continue asa/statin -PRN SL NTG -Continue abx's -OK for d/c plannig from cardiac standpoint Problems: Consultation Date/Type/Reason Admit Date/Time Feb 17, 2017 at 09:06 Initial Consult Date 02/15/2017 Type of Consultation: cardiology Reason for Consultation chest pain Referring Provider: JAI IRAHETA Exam/Review of Systems Vital Signs Vitals Vital Signs Date Time Temp Pulse Resp B/P Pulse Ox O2 Delivery O2 Flow Rate FiO2 02/17/17 12:28 98.2 66 20 131/61 97 02/15/17 20:00 Nasal Cannula 2.0 Intake and Output 02/16/17 02/16/17 02/17/17 15:00 23:00 07:00 Intake Total 850 ml 800 ml Balance 850 ml 800 ml Exam Review of Systems: CONSTITUTIONAL: No fevers, chills. PULMONARY: No sob CARDIOVASCULAR:some chest pain GASTROINTESTINAL: No nausea/vomiting. GENITOURINARY: No hematuria/dysuria. MUSCULOSKELETAL: No myagias/arthalgias. PSYCHIATRIC: The patient denies depression. NEUROLOGIC: No weakness Constitutional: alert, oriented Psych: no complaints Head: normocephalic ENMT: mucosa pink and moist Neck: jvd (8 cm water), supple Respiratory: clear to auscultation Cardiovascular: regular rate and rhythm Gastrointestinal: non-tender, soft Musculoskeletal: muscle tone (normal) Extremities: edema (none) Neurological: other (No focal deficits) Results Result Diagram: 02/17/17 0539 02/17/17 0539 Results 24 hrs Laboratory Tests Test 02/16/17 17:59 02/16/17 21:08 02/17/17 05:39 02/17/17 08:29 Bedside Glucose 157 109 113 White Blood Count 6.2 Red Blood Count 4.37 Hemoglobin 13.2 Hematocrit 40.8 Mean Corpuscular Volume 93.4 Mean Corpuscular Hemoglobin 30.2 Mean Corpuscular Hemoglobin Concent 32.4 Red Cell Distribution Width 13.2 Platelet Count 228 Mean Platelet Volume 10.8 H Neutrophils % 59.9 Lymphocytes % 28.8 Monocytes % 7.3 Eosinophils % 3.2 Basophils % 0.5 Nucleated Red Blood Cells % 0.0 Neutrophils # 3.7 Lymphocytes # 1.8 Monocytes # 0.5 Eosinophils # 0.2 Basophils # 0.0 Nucleated Red Blood Cells # 0.0 Sodium Level 143 Potassium Level 4.3 Chloride Level 107 Carbon Dioxide Level 29 Anion Gap 11 Blood Urea Nitrogen 12 Creatinine 0.77 Glucose Level 139 Calcium Level 9.1 Phosphorus Level 4.1 Magnesium Level 1.9 Test 02/17/17 12:35 Bedside Glucose 98 Medications Medications Current Medications Ondansetron HCl (Zofran Inj) 4 mg Q6H PRN IV NAUSEA AND/OR VOMITING; Start 02/15/17 at 14:30 Aspirin (Aspirin) 81 mg DAILY PO Last administered on 02/17/17 08:29; Admin Dose 81 MG; Start 02/16/17 at 09:00 Acetaminophen (Tylenol Tab) 650 mg Q6H PRN PO PAIN LEVEL 1-3 OR FEVER Last administered on 02/17/17 14:28; Admin Dose 650 MG; Start 02/15/17 at 14:30 Acetaminophen/ Hydrocodone Bitart ([place] (5/325)) 1 tab Q6H PRN PO PAIN LEVEL 4 -6 Last administered on 02/17/17 13:02; Admin Dose 1 TAB; Start 02/15/17 at 14: 30 Enoxaparin Sodium (Lovenox) 40 mg DAILY SC Last administered on 02/17/17 08:32 ; Admin Dose 40 MG; Start 02/16/17 at 09:00 Benazepril HCl (Lotensin) 20 mg DAILY PO Last administered on 02/17/17 08:36; Admin Dose 20 MG; Start 02/16/17 at 09:00 Gabapentin (Neurontin) 300 mg TID PO Last administered on 02/17/17 12:37; Admin Dose 300 MG; Start 02/15/17 at 21:00 Insulin Glargine (Lantus) 36 unit QHS SC Last administered on 02/16/17 21:34; Admin Dose 36 UNIT; Start 02/15/17 at 21:00 Atorvastatin Calcium (Lipitor) 10 mg DAILY@21 PO Last administered on 21:10; Admin Dose 10 MG; Start 02/15/17 at 21:00 Diagnostic Test (Pha) (Accu-Chek) 1 ea 02 XX ; Start 02/16/17 at 02:00 Miscellaneous Information 1 ea NOTE XX ; Start 02/16/17 at 14:00 Glucose (Glutose) 15 gm Q15M PRN PO DECREASED GLUCOSE; Start 02/16/17 at 14:00 Glucose (Glutose) 22.5 gm Q15M PRN PO DECREASED GLUCOSE; Start 02/16/17 at 14: 00 Dextrose (D50w Syringe) 25 ml Q15M PRN IV DECREASED GLUCOSE; Start 02/16/17 at 14:00 Dextrose (D50w Syringe) 50 ml Q15M PRN IV DECREASED GLUCOSE; Start 02/16/17 at 14:00 Glucagon (Glucagen) 1 mg Q15M PRN IM DECREASED GLUCOSE; Start 02/16/17 at 14:00 Glucose 15 gm 15 gm Q15M PRN BUCCAL DECREASED GLUCOSE; Start 02/16/17 at 14:00 Vancomycin HCl (Vancocin) 250 ml @ 125 mls/hr Q12H IVPB Last administered on 02/17/17 05:45; Admin Dose 125 MLS/HR; Start 02/17/17 at 06:00 Miscellaneous Information (*Rx Drug Level Order Reminder*) VANCO TROUGH @ 0, 500 ON ... ONCE ONCE XX ; Start 02/18/17 at 05:00; Stop 02/18/17 at 05:01 DORA LANIER Feb 17, 2017 14:33
--- NOTE | 2017-02-17 15:43 | CONS ---
Date/Time of Note Date/Time of Note DATE: 02/17/17 TIME: 15:35 Assessment/Plan Assessment/Plan Additional Assessment/Plan No evidence of mastitis, although patient did complain of 2 weeks of left breast pain. No palpable breast masses The left axillary mass may be reactive to a presumed history of left breast mastitis. In the absence of a palpable breast mass and the ability to do mammography while in hospital, we will make arrangements for an ultrasound- guided core biopsy of the left axillary mass. The patient should be continued on intravenous antibiotics. Further recommendations will be forthcoming after the results of her biopsy. The patient may be discharged after biopsy with arrangements made for urgent patient mammography. Consultation Date/Type/Reason Admit Date/Time Feb 17, 2017 at 09:06 Date of Consultation: Feb 17, 2017 Reason for Consultation Mass left axilla Hx of Present Illness The patient is a 61-year-old hypertensive diabetic female who presented to the emergency room complaining of left chest pain for which she was admitted and evaluated. Her coronary arteries are intact with an ejection fraction of 58%. Of note is the fact that the patient also states that she has had left breast pain for 2 weeks, but while in the hospital this has resolved, and she noted the development of a lump in the left axilla. Initial emergency room evaluation did not mention or specify any description of a left mastitis, however the day after admission left mastitis was included in her list of diagnoses, although there was never mention of redness or erythema. Follow-up evaluations noted that her left mastitis is responding to antibiotics. A left axillary ultrasound showed a 4.2 cm left axillary mass. She has had no fevers or chills. Constitutional: no complaints Eyes: no complaints ENT: no complaints Respiratory: no complaints Cardiovascular: other Gastrointestinal: no complaints Genitourinary: no complaints Musculoskeletal: no complaints Skin: no complaints Neurologic: no complaints Endocrine: no complaints Lymphatic: adenopathy, no complaints (As in the HPI) Psychological: no complaints Immunologic: no complaints Past Medical History Medical History: diabetes, high cholesterol, hypertension, hypothyroid Past Surgical History Past Surgical Hx: cholecystectomy, other (Permanent pacemaker) Family History Significant Family History: no pertinent family hx Social History Alcohol Use: none Smoking Status: Former smoker Drug Use: none Exam/Review of Systems Vital Signs Vitals Vital Signs Date Time Temp Pulse Resp B/P Pulse Ox O2 Delivery O2 Flow Rate FiO2 02/17/17 12:28 98.2 66 20 131/61 97 02/15/17 20:00 Nasal Cannula 2.0 Intake and Output 02/16/17 02/16/17 02/17/17 14:59 22:59 06:59 Intake Total 850 ml 800 ml Balance 850 ml 800 ml Exam Constitutional: alert, oriented Psych: no complaints Head: normocephalic Eyes: nl conjunctiva ENMT: nl external ears & nose Neck: supple Respiratory: clear to auscultation Gastrointestinal: soft Musculoskeletal: nl extremities to inspection Extremities: normal pulses Neurological: GEAR MACHINIST II-XII intact Skin: nl turgor Lymph: other (There is a 4 cm palpable nontender left axillary mass which is fixed. There are no palpable breast masses. There is no erythema, heat or induration.) Results Result Diagram: 02/17/17 0539 02/17/17 0539 Results 24 hrs Laboratory Tests Test 02/16/17 17:59 02/16/17 21:08 02/17/17 05:39 02/17/17 08:29 Bedside Glucose 157 109 113 White Blood Count 6.2 Red Blood Count 4.37 Hemoglobin 13.2 Hematocrit 40.8 Mean Corpuscular Volume 93.4 Mean Corpuscular Hemoglobin 30.2 Mean Corpuscular Hemoglobin Concent 32.4 Red Cell Distribution Width 13.2 Platelet Count 228 Mean Platelet Volume 10.8 H Neutrophils % 59.9 Lymphocytes % 28.8 Monocytes % 7.3 Eosinophils % 3.2 Basophils % 0.5 Nucleated Red Blood Cells % 0.0 Neutrophils # 3.7 Lymphocytes # 1.8 Monocytes # 0.5 Eosinophils # 0.2 Basophils # 0.0 Nucleated Red Blood Cells # 0.0 Sodium Level 143 Potassium Level 4.3 Chloride Level 107 Carbon Dioxide Level 29 Anion Gap 11 Blood Urea Nitrogen 12 Creatinine 0.77 Glucose Level 139 Calcium Level 9.1 Phosphorus Level 4.1 Magnesium Level 1.9 Test 02/17/17 12:35 Bedside Glucose 98 Medications Medications Current Medications Ondansetron HCl (Zofran Inj) 4 mg Q6H PRN IV NAUSEA AND/OR VOMITING; Start 02/15/17 at 14:30 Aspirin (Aspirin) 81 mg DAILY PO Last administered on 02/17/17t 08:29; Admin Dose 81 MG; Start 02/16/17 at 09:00 Acetaminophen (Tylenol Tab) 650 mg Q6H PRN PO PAIN LEVEL 1-3 OR FEVER Last administered on 02/17/17 14:28; Admin Dose 650 MG; Start 02/15/17 at 14:30 Acetaminophen/ Hydrocodone Bitart ([place] (5/325)) 1 tab Q6H PRN PO PAIN LEVEL 4 -6 Last administered on 02/17/17 13:02; Admin Dose 1 TAB; Start 02/15/17 at 14: 30 Enoxaparin Sodium (Lovenox) 40 mg DAILY SC Last administered on 02/17/17 08:32 ; Admin Dose 40 MG; Start 02/16/17 at 09:00 Benazepril HCl (Lotensin) 20 mg DAILY PO Last administered on 02/17/17 08:36; Admin Dose 20 MG; Start 02/16/17 at 09:00 Gabapentin (Neurontin) 300 mg TID PO Last administered on 02/17/17 12:37; Admin Dose 300 MG; Start 02/15/17 at 21:00 Insulin Glargine (Lantus) 36 unit QHS SC Last administered on 02/16/17 21:34; Admin Dose 36 UNIT; Start 02/15/17 at 21:00 Atorvastatin Calcium (Lipitor) 10 mg DAILY@21 PO Last administered on 21:10; Admin Dose 10 MG; Start 02/15/17 at 21:00 Diagnostic Test (Pha) (Accu-Chek) 1 ea 02 XX ; Start 02/16/17 at 02:00 Miscellaneous Information 1 ea NOTE XX ; Start 02/16/17 at 14:00 Glucose (Glutose) 15 gm Q15M PRN PO DECREASED GLUCOSE; Start 02/16/17 at 14:00 Glucose (Glutose) 22.5 gm Q15M PRN PO DECREASED GLUCOSE; Start 02/16/17 at 14: 00 Dextrose (D50w Syringe) 25 ml Q15M PRN IV DECREASED GLUCOSE; Start 02/16/17 at 14:00 Dextrose (D50w Syringe) 50 ml Q15M PRN IV DECREASED GLUCOSE; Start 02/16/17 at 14:00 Glucagon (Glucagen) 1 mg Q15M PRN IM DECREASED GLUCOSE; Start 02/16/17 at 14:00 Glucose 15 gm 15 gm Q15M PRN BUCCAL DECREASED GLUCOSE; Start 02/16/17 at 14:00 Vancomycin HCl (Vancocin) 250 ml @ 125 mls/hr Q12H IVPB Last administered on 02/17/17t 05:45; Admin Dose 125 MLS/HR; Start 02/17/17 at 06:00 Miscellaneous Information (*Rx Drug Level Order Reminder*) VANCO TROUGH @ 0, 500 ON ... ONCE ONCE XX ; Start 02/18/17 at 05:00; Stop 02/18/17 at 05:01 JAYDEN HUNTLEY MD Feb 17, 2017 15:43
--- NOTE | 2017-02-17 20:39 | PN ---
DATE: 02/17/2017 INFECTIOUS DISEASE PROGRESS NOTE SUBJECTIVE: No acute changes. The patient is alert, looks comfortable, complaining of left axillary pain. No fevers. VITAL SIGNS: Temperature 97.8, pulse 60, respirations 20, blood pressure 131/61 , saturation 97% on room air. LABORATORY DATA: WBC 6.2, platelets 228, BUN 12, creatinine 0.77. PHYSICAL EXAMINATION: GENERAL: This is well-developed, well-nourished, elderly woman who is alert, in no distress. HEENT: Head atraumatic, normocephalic. Sclerae anicteric. Buccal mucosa pink. NECK: Supple. CHEST: Rise symmetrical. Breath sounds diminished to bases. HEART: S1, S2. ABDOMEN: Soft. Bowel tones present. EXTREMITIES: Without cyanosis. SKIN: The patient has discrete palpable mass in her left axillary area that is painful to touch. ASSESSMENT: 1. Left axillary mass. 2. Status post chest pain. 3. Coronary artery disease status post permanent pacemaker placement. 4. Hypertension. 5. Diabetes. PLAN: Patient remains stable. She is going to be seen by surgery. Recommend a CT-guided needle aspiration biopsy of the mass to rule out malignancy. We are going to discontinue antibiotics as there is no erythema or any evidence of acute infectious process. Dictated By: ESCOBAR MCCLELLAND [employer] for RYLAND ARCHER MD NI/NTS Conf#: [id number] DID#: [id number] CC: JAI IRAHETA MD;*EndCC* MTDD
[2017-02-17] MEDS: ATORVASTATIN 10 MG TAB PO SCH (21:21)
[2017-02-17] MEDS: INSULIN GLARGINE [LANtus] 3 ML PEN SC SCH (21:21)
[2017-02-18] VITALS (8 sets, daily range): BP systolic 132–161; BP diastolic 60–70; PULSE 60–66; RESP 20
[2017-02-18] MEDS: ACCU-CHEK XX SCH (02:00)
[2017-02-18] MEDS: LEVOTHYROXINE 125 MCG TAB PO SCH (06:20)
--- NOTE | 2017-02-18 07:12 | CARRPT ---
DATE OF PROCEDURE: 02/16/2017 LEXISCAN CARDIOLITE STRESS TEST AND ELECTROCARDIOGRAM REPORT INDICATION: Chest pain, assess for ischemia. BASELINE VITAL SIGNS AND ELECTROCARDIOGRAM: Pulse 62, blood pressure 124/73. Electrocardiogram rev eals normal sinus rhythm, rate of 61, with a ventricular paced rhythm. PROCEDURE: The patient underwent standard Lexiscan infusion for ten seconds followed by radiolabele d tracer. The patient's test was stopped due to completion of protocol. Maximal achieved blood pre ssure during the test is 140/63. Maximum achieved heart rate during the test 75. ELECTROCARDIOGRAM FINDINGS: The patient did not develop any new Lexiscan-induced ST or T-wave pickens es from baseline abnormalities. No documented PVCs or PACs, and primarily remained paced throughout stress testing. SYMPTOMS: The patient had complaints of chest pressure, nausea during stress test and resolved in r ecovery. IMPRESSION: 1. No Lexiscan-induced ST or T-wave changes from baseline abnormalities diagnostic for ischemia. 2. Complaints of chest pain during stress testing, resolved in recovery. 3. No documented premature ventricular contractions during stress testing. 4. Report of nuclear images to follow in separate dictation. Dictated By: DORA MERINO/DAMARI Conf#: [id number] DID#: [id number] CC: MELLISSA FRANCIS NP; JAI IRAHETA MD;*[facility]*
--- NOTE | 2017-02-18 07:33 | RADRPT ---
PROCEDURE: Bilateral breast ultrasound. CLINICAL INDICATION: Left breast pain. TECHNIQUE: High-resolution sonography of both breasts was performed in the axial and sagittal plan es. COMPARISON: No prior study is available for comparison. FINDINGS: In the right breast 12 o'clock position, there is a solid hypoechoic mass measuring 1.3 x 0.5 x 1.1 cm. In the left breast subareolar region, there is edema of the breast parenchyma. No mass is visualized at this site. In the left axillary region inferiorly, there is enlarged lymph node measuring 5.2 x 2.8 cm. IMPRESSION: 1. In the right breast 12 o'clock position, a solid hypoechoic mass measuring 1.3 x 0.5 x 1.1 cm. C orrelation with mammography advised as this may be benign or malignant. 2. In the left breast subareolar region, edema of the breast parenchyma. No mass at this site. Clin ical correlation advised. 3. In the left axillary region inferiorly, an enlarged lymph node measuring 5.2 x 2.8 cm. Due to th e large size, this is suspicious for neoplasm. Correlation with mammography advised. Ultrasound-guid ed biopsy should be considered. RPTAT: QQ .Jimy Tineo MD, MD Date Time Electronically viewed and signed by .Jimy Tineo MD, MD on 02/18/2017 07:33 .R/
[2017-02-18] MEDS: INSULIN ASPART [NOVOLOG] 3 ML PEN SC SCH ×6 (07:55→17:00)
[2017-02-18] MEDS: ASPIRIN 81 MG TAB PO SCH (08:07)
[2017-02-18] MEDS: metFORMIN 500 MG TAB PO SCH ×2 (08:07→16:55)
[2017-02-18] MEDS: GABAPENTIN 300 MG CAP PO SCH ×2 (08:07→13:36)
[2017-02-18] MEDS: BENAZEPRIL 20 MG TAB PO SCH (08:08)
[2017-02-18] MEDS: ENOXAPARIN 40 MG/0.4 ML SYG SC SCH (08:13)
[2017-02-18] MEDS ORDERED: LIDOCAINE 1% (MPF) 5 ML VIAL ONE (11:04)
[2017-02-18] MEDS: HYDROCODONE/APAP (5/325) TAB PO PRN (11:27)
--- NOTE | 2017-02-18 12:31 | PN ---
Date/Time of Note Date/Time of Note DATE: 02/18/17 TIME: 12:23 Assessment/Plan VTE Prophylaxis VTE Prophylaxis Intervention: LMWH Lines/Catheters IV Catheter Type (from Nrs): Saline Lock Assessment/Plan Chief Complaint/Hosp Course Assessment and plan 1. Chest pain. ACS ruled out. Patient noted with negative stress test. EF per echo program did show a 50%. Continue with inorganic chemistry teacher or conditions. 2. Left-sided Mastitis. Continue antibiotics. 3. Enlarged left axillary lymph node. Size was noted to be 5.2 x 2.8 cm. Patient is status post biopsy at this time. Will follow up with results. 4. Status post permanent pacemaker placement. Continue on telemetry monitoring. Ice Cream Mixer following. 5. Essential hypertension. Continue antihypertensives and adjust needed. 6 Type 2 diabetes. A1c at 6.7. Continue insulin regimen. Will adjust as needed. Stable at present. 7. Dysrhythmia. Continue on statin medication. . 8. Hypothyroidism. Continue on Synthroid Disposition and plan: Status post biopsy. Follow-up on results. Continue in- house monitoring for now. Discussed plan of care with Dr. Bender Problems: Subjective 24 Hr Interval Summary Free Text/Dictation No reports of chest pain at this time. Does have some left breast pain status post biopsy. Family at bedside. No other specific complaints. Exam/Review of Systems Vital Signs Vitals Vital Signs Date Time Temp Pulse Resp B/P Pulse Ox O2 Delivery O2 Flow Rate FiO2 02/18/17 12:12 63 02/18/17 11:13 98.5 20 132/62 95 02/15/17 20:00 Nasal Cannula 2.0 Intake and Output 02/17/17 02/17/17 02/18/17 15:00 23:00 07:00 Intake Total 1200 ml 800 ml Balance 1200 ml 800 ml Exam Constitutional: alert, oriented Psych: nl mood/affect Head: normocephalic Eyes: nl conjunctiva Neck: non-tender, supple Respiratory: clear to auscultation, normal air movement Cardiovascular: regular rate and rhythm Gastrointestinal: non-tender, soft Musculoskeletal: No swelling Neurological: MERCURY RECOVERER II-XII intact, nl mental status, nl speech Skin: other (with left breast swelling towards axillary area. s/p biopsy with area cdi) Results Result Diagram: 02/17/17 0539 02/17/1739 Results 24 hrs Laboratory Tests Test 02/17/17 12:35 02/17/17 17:01 02/17/17 17:08 02/17/17 21:21 Bedside Glucose 98 73 91 92 Test 02/18/17 08:02 02/18/17 11:26 Bedside Glucose 134 156 Medications Medications Current Medications Ondansetron HCl (Zofran Inj) 4 mg Q6H PRN IV NAUSEA AND/OR VOMITING; Start 02/15/17 at 14:30 Aspirin (Aspirin) 81 mg DAILY PO Last administered on 02/18/17 08:07; Admin Dose 81 MG; Start 02/16/17 at 09:00 Acetaminophen (Tylenol Tab) 650 mg Q6H PRN PO PAIN LEVEL 1-3 OR FEVER Last administered on 02/17/17 14:28; Admin Dose 650 MG; Start 02/15/17 at 14:30 Acetaminophen/ Hydrocodone Bitart ([place] (5/325)) 1 tab Q6H PRN PO PAIN LEVEL 4 -6 Last administered on 02/18/17 11:27; Admin Dose 1 TAB; Start 02/15/17 at 14: 30 Enoxaparin Sodium (Lovenox) 40 mg DAILY SC Last administered on 02/18/17 08:13 ; Admin Dose 40 MG; Start 02/16/17 at 09:00 Benazepril HCl (Lotensin) 20 mg DAILY PO Last administered on 02/18/17 08:08; Admin Dose 20 MG; Start 02/16/17 at 09:00 Gabapentin (Neurontin) 300 mg TID PO Last administered on 02/18/17 08:07; Admin Dose 300 MG; Start 02/15/17 at 21:00 Insulin Glargine (Lantus) 36 unit QHS SC Last administered on 02/17/17 21:21; Admin Dose 36 UNIT; Start 02/15/17 at 21:00 Atorvastatin Calcium (Lipitor) 10 mg DAILY@21 PO Last administered on 21:21; Admin Dose 10 MG; Start 02/15/17 at 21:00 Diagnostic Test (Pha) (Accu-Chek) 1 ea 02 XX ; Start 02/16/17 at 02:00 Miscellaneous Information 1 ea NOTE XX ; Start 02/16/17 at 14:00 Glucose (Glutose) 15 gm Q15M PRN PO DECREASED GLUCOSE; Start 02/16/17 at 14:00 Glucose (Glutose) 22.5 gm Q15M PRN PO DECREASED GLUCOSE; Start 02/16/17 at 14: 00 Dextrose (D50w Syringe) 25 ml Q15M PRN IV DECREASED GLUCOSE; Start 02/16/17 at 14:00 Dextrose (D50w Syringe) 50 ml Q15M PRN IV DECREASED GLUCOSE; Start 02/16/17 at 14:00 Glucagon (Glucagen) 1 mg Q15M PRN IM DECREASED GLUCOSE; Start 02/16/17 at 14:00 Glucose (Glutose) 15 gm Q15M PRN BUCCAL DECREASED GLUCOSE; Start 02/16/17 at 14 :00 NIRAV WEBSTER Feb 18, 2017 12:31
--- NOTE | 2017-02-18 13:27 | CONS ---
Date/Time of Note Date/Time of Note DATE: 02/18/17 TIME: 13:25 Assessment/Plan Assessment/Plan Chief Complaint/Hosp Course IMP: 1.Chest pain-negative trop x 3/NL EF by echo. Lexiscan with NL EF and no ischemia. Likley due to breast infection 2.HTN 3.HL 4.DM 5.Breast swelling-? mastitis. improving on abx therapy 6. Axillary mass Recc: -Tele -serial ecg's -Continue benazepril -continue asa/statin -PRN SL NTG -Continue abx's -awaiting f/u of path -OK for d/c plannig from cardiac standpoint Problems: Consultation Date/Type/Reason Admit Date/Time Feb 17, 2017 at 09:06 Initial Consult Date 02/15/2017 Type of Consultation: cardiology Reason for Consultation chest pain Referring Provider: JAI IRAHETA Exam/Review of Systems Vital Signs Vitals Vital Signs Date Time Temp Pulse Resp B/P Pulse Ox O2 Delivery O2 Flow Rate FiO2 02/18/17 12:12 63 02/18/17 11:13 98.5 20 132/62 95 02/15/17 20:00 Nasal Cannula 2.0 Intake and Output 02/17/17 02/17/17 02/18/17 15:00 23:00 07:00 Intake Total 1200 ml 800 ml Balance 1200 ml 800 ml Exam Review of Systems: CONSTITUTIONAL: No fevers, chills. PULMONARY: No sob CARDIOVASCULAR: Breast pain GASTROINTESTINAL: No nausea/vomiting. GENITOURINARY: No hematuria/dysuria. MUSCULOSKELETAL: No myagias/arthalgias. PSYCHIATRIC: The patient denies depression. NEUROLOGIC: No weakness Constitutional: alert Psych: no complaints Head: normocephalic ENMT: mucosa pink and moist Neck: jvd (9 cm water), supple Respiratory: clear to auscultation Cardiovascular: regular rate and rhythm Gastrointestinal: non-tender, soft Musculoskeletal: muscle tone (normal) Extremities: edema (none) Neurological: other (No focal deficits) Results Result Diagram: 02/17/17 0539 02/17/17 0539 Results 24 hrs Laboratory Tests Test 02/17/17 17:01 02/17/17 17:08 02/17/17 21:21 02/18/17 08:02 Bedside Glucose 73 91 92 134 Test 02/18/17 11:26 Bedside Glucose 156 Medications Medications Current Medications Ondansetron HCl (Zofran Inj) 4 mg Q6H PRN IV NAUSEA AND/OR VOMITING; Start 02/15/17 at 14:30 Aspirin (Aspirin) 81 mg DAILY PO Last administered on 02/18/17 08:07; Admin Dose 81 MG; Start 02/16/17 at 09:00 Acetaminophen (Tylenol Tab) 650 mg Q6H PRN PO PAIN LEVEL 1-3 OR FEVER Last administered on 02/17/17 14:28; Admin Dose 650 MG; Start 02/15/17 at 14:30 Acetaminophen/ Hydrocodone Bitart ([place] (5/325)) 1 tab Q6H PRN PO PAIN LEVEL 4 -6 Last administered on 02/18/17 11:27; Admin Dose 1 TAB; Start 02/15/17 at 14: 30 Enoxaparin Sodium (Lovenox) 40 mg DAILY SC Last administered on 02/18/17 08:13 ; Admin Dose 40 MG; Start 02/16/17 at 09:00 Benazepril HCl (Lotensin) 20 mg DAILY PO Last administered on 02/18/17 08:08; Admin Dose 20 MG; Start 02/16/17 at 09:00 Gabapentin (Neurontin) 300 mg TID PO Last administered on 02/18/17 08:07; Admin Dose 300 MG; Start 02/15/17 at 21:00 Insulin Glargine (Lantus) 36 unit QHS SC Last administered on 02/17/17 21:21; Admin Dose 36 UNIT; Start 02/15/17 at 21:00 Atorvastatin Calcium (Lipitor) 10 mg DAILY@21 PO Last administered on 21:21; Admin Dose 10 MG; Start 02/15/17 at 21:00 Diagnostic Test (Pha) (Accu-Chek) 1 ea 02 XX ; Start 02/16/17 at 02:00 Miscellaneous Information 1 ea NOTE XX ; Start 02/16/17 at 14:00 Glucose (Glutose) 15 gm Q15M PRN PO DECREASED GLUCOSE; Start 02/16/17 at 14:00 Glucose (Glutose) 22.5 gm Q15M PRN PO DECREASED GLUCOSE; Start 02/16/17 at 14: 00 Dextrose (D50w Syringe) 25 ml Q15M PRN IV DECREASED GLUCOSE; Start 02/16/17 at 14:00 Dextrose (D50w Syringe) 50 ml Q15M PRN IV DECREASED GLUCOSE; Start 02/16/17 at 14:00 Glucagon (Glucagen) 1 mg Q15M PRN IM DECREASED GLUCOSE; Start 02/16/17 at 14:00 Glucose (Glutose) 15 gm Q15M PRN BUCCAL DECREASED GLUCOSE; Start 02/16/17 at 14 :00 DORA LANIER Feb 18, 2017 13:27
--- NOTE | 2017-02-18 15:04 | CONS ---
Date/Time of Note Date/Time of Note DATE: 02/18/17 TIME: 15:03 Assessment/Plan Assessment/Plan Chief Complaint/Hosp Course SUBJECTIVE: No acute changes. The patient is alert, looks comfortable, complaining of left axillary pain. No fevers. PHYSICAL EXAMINATION: GENERAL: This is well-developed, well-nourished, elderly woman who is alert, in no distress. HEENT: Head atraumatic, normocephalic. Sclerae anicteric. Buccal mucosa pink. NECK: Supple. CHEST: Rise symmetrical. Breath sounds diminished to bases. HEART: S1, S2. ABDOMEN: Soft. Bowel tones present. EXTREMITIES: Without cyanosis. SKIN: The patient has discrete palpable mass in her left axillary area that is painful to touch. ASSESSMENT: 1. Left axillary mass. 2. Status post chest pain. 3. Coronary artery disease status post permanent pacemaker placement. 4. Hypertension. 5. Diabetes. PLAN: Patient remains stable. Off abx, surgery on case, pending CT-guided needle aspiration biopsy [facility] staff Problems: Consultation Date/Type/Reason Admit Date/Time Feb 17, 2017 at 09:06 Initial Consult Date 02/17/17 Type of Consultation: id Referring Provider: JAI IRAHETA Exam/Review of Systems Vital Signs Vitals Vital Signs Date Time Temp Pulse Resp B/P Pulse Ox O2 Delivery O2 Flow Rate FiO2 02/18/17 12:12 63 02/18/17 11:13 98.5 20 132/62 95 02/15/17 20:00 Nasal Cannula 2.0 Intake and Output 02/17/17 02/17/17 02/18/17 15:00 23:00 07:00 Intake Total 1200 ml 800 ml Balance 1200 ml 800 ml Results Result Diagram: 02/17/17 0539 02/17/17 0539 Results 24 hrs Laboratory Tests Test 02/17/17 17:01 02/17/17 17:08 02/17/17 21:21 02/18/17 08:02 Bedside Glucose 73 91 92 134 Test 02/18/17 11:26 Bedside Glucose 156 Medications Medications Current Medications Ondansetron HCl (Zofran Inj) 4 mg Q6H PRN IV NAUSEA AND/OR VOMITING; Start 02/15/17 at 14:30 Aspirin (Aspirin) 81 mg DAILY PO Last administered on 02/18/17t 08:07; Admin Dose 81 MG; Start 02/16/17 at 09:00 Acetaminophen (Tylenol Tab) 650 mg Q6H PRN PO PAIN LEVEL 1-3 OR FEVER Last administered on 02/17/17 14:28; Admin Dose 650 MG; Start 02/15/17 at 14:30 Acetaminophen/ Hydrocodone Bitart ([place] (5/325)) 1 tab Q6H PRN PO PAIN LEVEL 4 -6 Last administered on 02/18/17 11:27; Admin Dose 1 TAB; Start 02/15/17 at 14: 30 Enoxaparin Sodium (Lovenox) 40 mg DAILY SC Last administered on 02/18/17 08:13 ; Admin Dose 40 MG; Start 02/16/17 at 09:00 Benazepril HCl (Lotensin) 20 mg DAILY PO Last administered on 02/18/17 08:08; Admin Dose 20 MG; Start 02/16/17 at 09:00 Gabapentin (Neurontin) 300 mg TID PO Last administered on 02/18/17 13:36; Admin Dose 300 MG; Start 02/15/17 at 21:00 Insulin Glargine (Lantus) 36 unit QHS SC Last administered on 02/17/17 21:21; Admin Dose 36 UNIT; Start 02/15/17 at 21:00 Atorvastatin Calcium (Lipitor) 10 mg DAILY@21 PO Last administered on 21:21; Admin Dose 10 MG; Start 02/15/17 at 21:00 Diagnostic Test (Pha) (Accu-Chek) 1 ea 02 XX ; Start 02/16/17 at 02:00 Miscellaneous Information 1 ea NOTE XX ; Start 02/16/17 at 14:00 Glucose (Glutose) 15 gm Q15M PRN PO DECREASED GLUCOSE; Start 02/16/17 at 14:00 Glucose (Glutose) 22.5 gm Q15M PRN PO DECREASED GLUCOSE; Start 02/16/17 at 14: 00 Dextrose (D50w Syringe) 25 ml Q15M PRN IV DECREASED GLUCOSE; Start 02/16/17 at 14:00 Dextrose (D50w Syringe) 50 ml Q15M PRN IV DECREASED GLUCOSE; Start 02/16/17 at 14:00 Glucagon (Glucagen) 1 mg Q15M PRN IM DECREASED GLUCOSE; Start 02/16/17 at 14:00 Glucose (Glutose) 15 gm Q15M PRN BUCCAL DECREASED GLUCOSE; Start 02/16/17 at 14 :00 ESCOBAR MCCLELLAND NP Feb 18, 2017 15:04
--- NOTE | 2017-02-18 15:22 | RADRPT ---
PROCEDURE: Ultrasound guided left axillary lymph node biopsy. CLINICAL INDICATION: Left axillary lymphadenopathy. TECHNIQUE: Prior to the procedure, informed consent was obtained. Risks including bleeding and in fection were explained to the patient. The patient understood was willing to proceed. A procedural pause was performed. The patient's name, date of , and procedure to be performed were verifie d. Using local anesthetic, sterile technique and ultrasound guidance, a 14-gauge automated core biopsy needle was used to biopsy the left inferior axillary lymph node. Multiple passes were made. [place] te tissue was obtained and sent for pathologic analysis. The patient tolerated the procedure well. COMPARISON: Ultrasound dated 02/15/2017. FINDINGS: Images demonstrate the needle within the enlarged left axillary lymph node. IMPRESSION: 1. Satisfactory ultrasound-guided left axillary lymphadenopathy biopsy. RPTAT: QQ .Jimy Tineo MD, MD Date Time Electronically viewed and signed by .Jimy Tineo MD, on 02/18/2017 15:22 .R/
--- NOTE | 2017-02-18 17:42 | PN ---
Date/Time of Note Date/Time of Note DATE: 02/18/17 TIME: 17:40 Assessment/Plan Lines/Catheters IV Catheter Type (from [facility]): [place] Assessment/Plan Chief Complaint/Hosp Course The patient is a 61-year-old hypertensive diabetic female who presented to the emergency room complaining of left chest pain for which she was admitted and evaluated. Her coronary arteries are intact with an ejection fraction of 58%. Of note is the fact that the patient also states that she has had left breast pain for 2 weeks, but while in the hospital this has resolved, and she noted the development of a lump in the left axilla. Initial emergency room evaluation did not mention or specify any description of a left mastitis, however the day after admission left mastitis was included in her list of diagnoses, although there was never mention of redness or erythema. Follow-up evaluations noted that her left mastitis is responding to antibiotics. A left axillary ultrasound showed a 4.2 cm left axillary mass. She has had no fevers or chills. Problems: Assessment/Plan Can discharge with outpatient follow-up pending pathology reports. She will need pain medications and antibiotics Subjective 24 Hr Interval Summary Patient had successful stereotactic core biopsy of the axillary mass earlier today Her left breast pain has resolved Exam/Review of Systems Vital Signs Vitals Vital Signs Date Time Temp Pulse Resp B/P Pulse Ox O2 Delivery O2 Flow Rate FiO2 02/18/17 16:08 64 02/18/17 15:48 97.9 20 161/70 98 02/15/17 20:00 Nasal Cannula 2.0 Intake and Output 02/17/17 02/17/17 02/18/17 14:59 22:59 06:59 Intake Total 1200 ml 800 ml Balance 1200 ml 800 ml Results Result Diagram: 02/17/17 0539 02/17/17 0539 JAYDEN HUNTLEY MD Feb 18, 2017 17:42
[2017-02-18] MEDS ORDERED: CEPH500C PO (18:32)
[2017-02-18] MEDS ORDERED: HYDR-906 PO (18:32)
--- NOTE | 2017-02-18 18:33 | PDOCDIS ---
Discharge Instructions CONDITION Patient Condition: Good HOME CARE INSTRUCTIONS: Special Diet: carb controlled ACTIVITY: Activity Restrictions: No Restrictions FOLLOW UP/APPOINTMENTS Follow-up Plan Follow-up with her PCP 1-2 weeks, follow-up with Dr. Elijah Yates of surgery in 1-2 weeks OSVALDO POOLE Feb 18, 2017 18:33
--- NOTE | 2017-02-21 09:59 | QN ---
Documentation Comment We were notified by Dr. Yates about patient's pathology results coming back as cancer. I placed a call out to patient's insurance company [email or web address] at [phone], I spoke with Komal and she recommended that we send a referral for outpatient oncology review as patient has already been discharged from the hospital. Hence I put in an immediate order to case management to please fax over an order for outpatient oncology review so that authorization may be obtained for the patient. Also Komal notified is that the patient's primary care physician would be [facility], and as such we will be reaching outpatient to notify her to please go to [facility] right away and advised him that she was told she had a cancerous pathology report and do blood work and also confirming oncology authorization and the oncologist were taken from there JAI IRAHETA Feb 21, 2017 09:59
== END 2017-02-18 19:17 | disposition home or self-care (01) | DRG 581 ==
LOC: E/R 11:06 → TEL 12:39 → OBSVTOIN 02-17 09:06
PROVIDERS: ADMIT Family Medicine; ATTEND Family Medicine
PROC: 07B63ZX Excision of Left Axillary Lymphatic, Percutaneous Approach, Diagnostic (ICD-10-PCS; principal; 2017-02-18)
DX: C50.912 Malignant neoplasm of unspecified site of left female breast (principal); I10 Essential (primary) hypertension; R07.9 Chest pain, unspecified; I25.10 Atherosclerotic heart disease of native coronary artery without angina pectoris; I49.9 Cardiac arrhythmia, unspecified; E11.9 Type 2 diabetes mellitus without complications; E78.5 Hyperlipidemia, unspecified; E03.9 Hypothyroidism, unspecified; R22.9 Localized swelling, mass and lump, unspecified; Z87.891 Personal history of nicotine dependence; Z95.0 Presence of cardiac pacemaker
CPT/HCPCS: 36415; 71010; 76536; 76942; 78452; 80048; 80053; 80061; 82550; 82553; 82962; 83036; 83735; 83880; 84100; 84439; 84443; 84484; 85025; 85610; 85730; 88307; 88313; 93005; 93017; 93306; 93970; 96374; 96375; G0378; A9500; A9505; J1650; J1815; J2270; J2405; J2785; J3370; J7040

== ENCOUNTER 2017-02-22 16:22 | Emergency (ER) | payer OTHER ==
[~2017-02-22] VITALS: Ht 157.5 cm; Wt 95.6 kg
[~2017-02-22 16:22] MED LIST changes: -ACET500C5 PO; +ASPI-664 PO; -BACTDS PO; +BENA20TA48 PO; -CEPH-443 PO; +CEPH500C PO; +GABA300C16 PO; +HYDR-906 PO; +INSU100C SQ; +LANT3I SC; +LEVO125T75 PO; +MTF1000T PO; +OMEP20CA16 PO; +SIMV20TA PO
[2017-02-22 16:25] VITALS: Ht 157.5 cm; Wt 95.6 kg
--- NOTE | 2017-02-22 22:19 | ERD ---
ER Documentation Chief Complaint Chief Complaint Complains of L axilla pain, s/p recent axilla biopsy result HPI The patient is 61-year-old female, presenting to the ER because of left axilla pain after biopsy on February 18, [address] Yates. She was discharged 4 days ago. She was contacted by the hospitalist Dr Grajeda because the biopsy came back positive for metastatic breast ca yesterday. She returned to the ER because of the pain. She has not seen her physician for referral to oncology. She denies fever, chills, cough, neck pain, chest pain, dyspnea, abdominal pain, vomiting or dysuria, diarrhea. She does not smoke nor drink Past medical history: Hypertension, diabetes mellitus, dyslipidemia, hypothyroidism, CAD Past surgical history: Pacemaker ROS All systems reviewed and are negative except as per history of present illness. Medications Home Meds Active Scripts Oxycodone HCl/Acetaminophen (Percocet 5-325 mg Tablet) 1 Each Tablet, 1 EACH PO Q6H, #14 TAB Prov:DWAYNE BLACKMAN MD 02/22/17 Reported Medications Insulin Glargine,Hum.rec.anlog (Basaglar Kwikpen U-100) 100 Unit/1 Ml Insuln.pen , 36 UNIT SC QHS 02/22/17 Insulin Lispro (Humalog) 100 Unit/1 Ml Cartridge, 15 UNIT SQ BID WITH MEALS 02/15/17 Metformin* (Glucophage*) 1,000 Mg Tablet, 1000 MG PO BID, #60 TAB 02/15/17 Aspirin* (Aspirin* EC) 81 Mg Tablet.dr, 81 MG PO DAILY, TAB 02/15/17 Benazepril Hcl* (Benazepril Hcl*) 20 Mg Tablet, 20 MG PO DAILY, #30 TAB 02/15/17 Omeprazole* (Omeprazole*) 20 Mg Capsule.dr, 20 MG PO AC BREAKFAST, #30 CAP 02/15/17 Gabapentin* (Gabapentin*) 300 Mg Capsule, 300 MG PO TID, #90 CAP 02/15/17 Simvastatin* (Zocor*) 20 Mg Tablet, 20 MG PO QHS, #30 TAB 02/15/17 Levothyroxine Sodium* (Levothyroxine Sodium*) 125 Mcg Tablet, 125 MCG PO BEFORE BREAKFAST, #30 TAB 02/15/17 Discontinued Reported Medications Insulin Glargine* (Lantus*) 100 Unit/Ml Soln, 36 UNIT SC QHS, #1 VIAL 02/15/17 Metformin* (Glucophage*) 500 Mg Tab, 500 MG PO BID, #30 TAB 02/15/17 Discontinued Scripts Hydrocodone/Acetaminophen ([place] 5-325 Tablet) 1 Each Tablet, 1 EACH PO Q4 for PAIN, #30 TAB Prov:OSVALDO POOLE 02/18/17 Cephalexin* (Cephalexin*) 500 Mg Capsule, 500 MG PO BID for 5 Days, #10 CAP Prov:OSVALDO POOLE 02/18/17 Acetaminophen* (Tylophen*) 500 Mg Capsule, 1 CAP PO Q6H Y for PAIN AND OR ELEVATED TEMP, #50 CAP Prov:STORMY MORENO PA-C 12/29/15 Sulfamethoxazole-Trimethoprim* (Bactrim* DS) 800-160 Mg Tab, 1 TAB PO BID for 7 Days, TAB Prov:STORMY MORENO PA-C 12/29/15 Cephalexin* (Keflex*) 500 Mg Capsule, 500 MG PO QID for 7 Days, CAP Prov:STORMY MORENO-C 12/29/15 Allergies Allergies: Coded Allergies: No Known Allergy (Unverified , 02/22/17) PMhx/Soc History of Surgery: Yes (PACEMAKER) Anesthesia Reaction: No Hx Neurological Disorder: No Hx Respiratory Disorders: No Hx Cardiac Disorders: Yes (HTN) Hx Psychiatric Problems: No Hx Miscellaneous Medical Probl: No Hx Alcohol Use: No Hx Substance Use: No Hx Tobacco Use: No Physical Exam Vitals Vital Signs Date Time Temp Pulse Resp B/P Pulse Ox O2 Delivery O2 Flow Rate FiO2 02/22/17 22:25 98.6 85 22 160/52 94 Room Air 02/22/17 16:25 99.8 85 20 132/70 98 Physical Exam Const: No acute distress. Head: Atraumatic. Eyes: Normal Conjunctiva. ENT: Normal External Ears, Nose and Mouth. Neck: Full range of motion. No meningismus. Resp: Clear to auscultation bilaterally. Cardio: Regular rate and rhythm. Abd: Soft, non distended, normal bowel sounds, non tender. Skin: No petechiae or rashes. Back: No midline or flank tenderness. Ext: No cyanosis, or edema.L axillary mass with tender, no discharge, no erythema Neur: Awake and alert. No focal deficit Psych: Normal Mood and Affect. Results 24 hrs Current Medications Medications (Trade) Dose Ordered Sig/Nacho Route PRN Reason Start Time Stop Time Status Last Admin Dose Admin Morphine Sulfate (morphine) 4 mg ONCE STAT IM 02/22/17 22:42 02/22/17 22:44 DC 02/22/17 23:06 Ondansetron HCl (Zofran Odt) 4 mg ONCE STAT ODT 02/22/17 22:42 02/22/17 22:44 DC 02/22/17 23:06 Procedures/MDM EKG: Read by emergency physician Rate/Rhythm: Normal Sinus Rhythm 77 beats/min QRS, ST, T-waves: No ST elevation, LAD, LVY, inf/ant/lat Q waves, widen QRS Impression: Abnormal EKG MEDICAL MAKING DECISION: The patient is a 61-year-old female, presenting with pain of the left axillary mass after biopsy a few days ago. She was treated with morphine 4 mg IM for pain and Zofran ODT for nausea with good response. I do not suspect any infection The differential diagnoses considered include but are not limited to cellulitis , abscess, metastatic breast ca, ACS, PNA, PTX, PE Departure Diagnosis: Primary Impression: Breast cancer in female Condition: Good Comments She was discharged with Percocet and given all the labs including biopsy result and advised to see her PCP tomorrow for referral to Oncology immediately, return if any concern DWAYNE BLACKMAN MD Feb 22, 2017 22:19
[2017-02-22 22:25] VITALS: BP 160/52; PULSE 85; RESP 22; TEMP 98.6
[2017-02-22] MEDS ORDERED: ONDANSETRON (ODT) 4 MG TAB ODT STA (22:42)
[2017-02-22] MEDS ORDERED: morphine 4 MG/ML VIAL IM STA (22:42)
[2017-02-22] MEDS ORDERED: INSU100I33 SC (22:50)
[2017-02-22] MEDS ORDERED: OXYC-279 PO (22:53)
== END 2017-02-22 23:42 | disposition home or self-care (01) ==
LOC: E/R 16:22
DX: C50.919 Malignant neoplasm of unspecified site of unspecified female breast (principal); I10 Essential (primary) hypertension; E11.9 Type 2 diabetes mellitus without complications; E03.9 Hypothyroidism, unspecified; I25.10 Atherosclerotic heart disease of native coronary artery without angina pectoris; Z95.0 Presence of cardiac pacemaker; Z79.4 Long term (current) use of insulin; Z79.84 Long term (current) use of oral hypoglycemic drugs; Z79.82 Long term (current) use of aspirin
CPT/HCPCS: 96372; J2270; Z7502; Z7610

== ENCOUNTER 2017-03-07 11:22 | Observation (INO) | END 2017-03-11 15:45 | disposition home or self-care (01) ==

== ENCOUNTER 2017-03-14 14:58 | Inpatient (IN) | END 2017-03-19 12:30 | disposition home or self-care (01) | DRG 552 ==